=== PATIENT | female | born 1935 | race Caucasian/White ===

== ENCOUNTER 2019-03-20 11:40 | Outpatient (CLI) | payer MEDICARE, OTHER | END 2019-03-20 11:41 | disposition critical access hospital (66) | LOC: EMS 11:40 | PROVIDERS: ATTEND Surgery | DX: M25.552 Pain in left hip (principal); W18.09XA Striking against other object with subsequent fall, initial encounter; Y92.009 Unspecified place in unspecified non-institutional (private) residence as the place of occurrence of the external cause | CPT/HCPCS: A0425; A0427; A0429 ==

== ENCOUNTER 2019-03-20 11:56 | Inpatient (IN) | payer MEDICARE, OTHER ==
[2019-03-20] MEDS ORDERED: ONDANSETRON 4 MG/2 ML VIAL IVP STA (12:40)
[2019-03-20] MEDS ORDERED: MORPHINE 2 MG/ML CARPUJECT IVP STA (12:40)
[2019-03-20 12:59] LABS: BASOPHILS % (AUTO) 0.6 %; EOSINOPHILS % (AUTO) 0.7 %; HGB - HEMOGLOBIN 12.9 g/dL (12.0-16.0); LYMPHOCYTES # (AUTO) 1.1 10^3/uL (1.5-3.5); LYMPHOCYTES % (AUTO) 20.4 %; MEAN CORPUSCULAR HEMOGLOBIN 30.3 pg (27.0-31.0); MEAN CORPUSCULAR HGB CONC 32.5 g/dL (32.0-36.0); MEAN CORPUSCULAR VOLUME 93.2 fL (81.0-99.0); MEAN PLATELET VOLUME 12.1 fL (7.9-10.8); MONOCYTES # (AUTO) 0.4 10^3/uL (0.0-1.0); MONOCYTES % (AUTO) 7.1 %; NEUTROPHILS # (AUTO) 3.8 10^3/uL (1.5-6.6); NEUTROPHILS % (AUTO) 70.6 %; PLT - PLATELET COUNT 110 10^3/uL (130-450); RED BLOOD COUNT 4.26 10^6/uL (4.20-5.40); RED CELL DISTRIBUTION WIDTH 11.9 % (12.0-15.0); WHITE BLOOD COUNT 5.4 x10^3/uL (4.8-10.8)
[2019-03-20 13:05] LABS: PT - PROTHROMBIN TIME 11.4 secs (9.9-12.6)
[2019-03-20 13:08] LABS: ALBUMIN 3.5 g/dL (3.2-5.5); ALBUMIN/GLOBULIN RATIO 1.2 (1.0-2.2); BILIRUBIN,TOTAL 0.5 mg/dL (0.2-1.0); CALCIUM 9.9 mg/dL (8.5-10.3); CREATININE 0.8 mg/dL (0.4-1.0); TOTAL PROTEIN 6.5 g/dL (6.7-8.2)
[2019-03-20 13:39] LABS: PLATELET ESTIMATE, MANUAL DECREASED (<130,000) (NORMAL); PLATELET MORPHOLOGY NORMAL APPEARANCE (NORMAL)
--- NOTE | 2019-03-20 13:59 | ED Physician Documentation ---
History of Present Illness - Stated complaint Stated Complaint: FALL - Chief complaint Chief Complaint: Trauma Ext - Additonal information Additional information: This is an 83-year-old female with a history of diabetes, who presents with left hip pain after a fall. Patient was walking out of the house trying to find her dog and she ran into a glass door that she did not see, causing her to fall backwards onto her left hip. She states that immediate pain in the hip and could not move from the position on the ground. She is been unable to ambulate. Her friends at the house called for EMS who transported her here. She denies weakness or numbness in the leg. 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 HEENT: Tonsil/Adenoidectomy - Present Medications Home Medications: Ambulatory Orders Medication Instructions Recorded Confirmed Estrogens, Conjugated [Premarin] 0.3 mg PO 01/13/13 01/13/13 Glucosamine Sulfate Dipot Chlr 1,000 mg PO 01/13/13 01/13/13 [Glucosamine] Lisinopril 20 mg PO 01/13/13 01/13/13 Metformin HCl [Glucophage Xr] 750 mg PO BID 01/13/13 01/13/13 Metoprolol/Hydrochlorothiazide 50 each PO 01/13/13 01/13/13 [Metoprolol-Hctz 100-50 mg Tab] Multivitamin [Multivitamins] 1 each PO 01/13/13 01/13/13 [place]-3/Dha/Epa/Fish Oil [Fish Oil] 500 mg PO BID 01/13/13 01/13/13 Simvastatin [Zocor] 10 mg PO 01/13/13 01/13/13 - Allergies Allergies/Adverse Reactions: Allergies Allergy/AdvReac Type Severity Reaction Status Date / Time adhesive AdvReac Mild unknown Verified 03/20/19 12:51 codeine [Codeine] AdvReac Mild Nausea Verified 03/20/19 12:51 PD ED PE NORMAL - Vitals Vital signs reviewed: Yes - General General: Alert and oriented X 3 - HEENT HEENT: Atraumatic - Neck Neck: No bony TTP - Cardiac Cardiac: RRR - Respiratory Respiratory: Clear bilaterally - Abdomen Abdomen: Non tender, Non distended - Derm Derm: Warm and dry - Extremities Extremities: Other (Pain with palpation along the left hip joint, and severe pain with any movement of the left leg. 5/5 strength with ankle dorsiflexion and plantarflexion, SILT, distal pulses 2+ bilaterally.) - Neuro Neuro: Alert and oriented X 3 - Psych Psych: Normal mood, Normal affect Results - Vitals Vitals: Vital Signs - 24 hr 03/20/19 03/20/19 12:03 14:18 Temperature 36.5 C Heart Rate 58 L 61 Respiratory 14 18 Rate Blood Pressure 197/70 H 145/45 H O2 Saturation 100 96 Oxygen O2 Source Room air - Labs Labs: Laboratory Tests 03/20/19 03/20/19 03/20/19 12:45 12:45 12:45 WBC 5.4 RBC 4.26 Hgb 12.9 Hct 39.7 MCV 93.2 MCH 30.3 MCHC 32.5 RDW 11.9 L Plt Count 110 L MPV 12.1 H Neut # (Auto) 3.8 Lymph # (Auto) 1.1 L [place] # (Auto) 0.4 Eos # (Auto) 0.0 Baso # (Auto) 0.0 Absolute Nucleated RBC 0.00 Nucleated RBC % 0.0 Manual Slide Review Indicated Platelet Estimate DECREASED (<130,000) Platelet Morphology NORMAL APPEARANCE PT 11.4 INR 1.0 Sodium 138 Potassium 4.2 Chloride 101 Carbon Dioxide 29 Anion Gap 8.0 BUN 24 H Creatinine 0.8 Estimated GFR (MDRD) 68 L Glucose 123 H Glycated Hemoglobin Estim Average Glucose Calcium 9.9 Total Bilirubin 0.5 AST 18 ALT 13 Alkaline Phosphatase 57 Total Protein 6.5 L Albumin 3.5 Globulin 3.0 Albumin/Globulin Ratio 1.2 Lipase 31 03/20/19 12:45 WBC RBC Hgb Hct MCV MCH MCHC RDW Plt Count MPV Neut # (Auto) Lymph # (Auto) [place] # (Auto) Eos # (Auto) Baso # (Auto) Absolute Nucleated RBC Nucleated RBC % Manual Slide Review Platelet Estimate Platelet Morphology PT INR Sodium Potassium Chloride Carbon Dioxide Anion Gap BUN Creatinine Estimated GFR (MDRD) Glucose Glycated Hemoglobin 5.9 Estim Average Glucose 123 H Calcium Total Bilirubin AST ALT Alkaline Phosphatase Total Protein Albumin Globulin Albumin/Globulin Ratio Lipase - Rads (name of study) XR hip L Radiology: Other (Left femoral neck fracture) PD MEDICAL DECISION MAKING - ED course Complexity details: considered differential (Fracutre, dislocation, strain, sprain, contusion) ED course: Pt presents with left hip pain after a fall. Her exam is concerning to fracture, and XR confirms fracture of the femoral neck. She was given morphine and zofran for symptoms. Labs notable for mild thrombocytopenia, otherwise unremarkable. I spoke with Dr. Morales at 15:06,who recommended admission to hospitalist, with plans for operative fixation tomorrow. She was started on LR maintenance fluids and admitted to Dr. Nicholson. I updated patient on the plan and answered her questions to the best of my ability. While in the ED she required multiple further doses of hydromorphone for pain control. Departure - Departure Disposition: [facility] DC/Xfer Clinical Impression: Hip fracture Qualifiers: Encounter type: initial encounter Fracture type: closed Laterality: left Qualified Code(s): S72.002A - Fracture of unspecified part of neck of left femur, initial encounter for closed fracture Condition: Stable Discharge Date/Time: 03/20/19 17:19
[2019-03-20] MEDS ORDERED: HYDROmorphone 2 MG/ML VIAL IVP STA ×2 (14:04→15:32)
--- NOTE | 2019-03-20 14:12 | XRAY Report ---
Reason: Fall, L hip pain, limited ROM Procedure Date: 03/20/2019 Accession Number: [id number] / [id number] Procedure: XR - Hip w/Pelvis 2-3V LT CPT Code: FULL RESULT: EXAM: LEFT HIP RADIOGRAPHY EXAM DATE: 03/20/2019 01:35 PM. CLINICAL HISTORY: Fall, L hip pain, limited ROM. COMPARISON: None. TECHNIQUE: 2 views. FINDINGS: Bones: There is asymmetric angulation of the left femoral neck with cortical discontinuity consistent with acute mildly displaced transcervical femoral neck fracture. Joints: Hip joints are relatively preserved. No dislocation. Moderate pubic symphyseal DJD. Soft Tissues: Unremarkable. IMPRESSION: 1. Findings are consistent with acute left femoral neck fracture. RADIA
[2019-03-20] MEDS ORDERED: ONDANSETRON 4 MG/2 ML VIAL IVP PRN (15:29)
[2019-03-20] MEDS ORDERED: ZOLPIDEM 5 MG TABLET PO PRN (15:29)
[2019-03-20] MEDS ORDERED: SODIUM CHLORIDE FLUSH 0.9% 10 ML SYRINGE IVP PRN (15:29)
--- NOTE | 2019-03-20 15:29 | HISTORY & PHYSICAL EXAMINATION ---
Chief Complaint - Chief Complaint Chief Complaint: fall, hip pain History of Present Illness - History of Present Illness HPI Comment/Other: Ms. Ahuja is a 83-year-old female with a history of diabetes and HTN, who presents ER complain of left hip pain after she had a fall. Patient report when she tried to find her dog, she ran into a glass door which caused her to fall backwards onto her left hip. She recognized the immediate pain in the hip. she could not move from the position on the ground. Her friends at the house called for EMS who transported her here. she denies other injuries. She denies weakness or numbness in the left leg. she report she walked every day about one mile. she report she moved to [facility] about two years ago from [place] after her . She denies chest pain, vision change, headache, fever, chill, shortness of breath, nausea, vomiting, abdominal pain. Pt denies cardiac history. Xray of hip reveals the findings are consistent with acute left femoral neck fracture. Pt's lab work in ER today are unremarkable. Dr. Morales was called by ER. pt is planned to have hip repair on tomorrow. pt is admitted for left hip repair. 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 her Mother from COPD complication. she had four child. one son is not health because he smoked too much, other three children are health. she revomed to [place] from [place] about 2 years ago after her Social History Notes: she report she quited cigarette smoking at her ago 48, she denies alcohol and drug issue. - POLST POLST Status: DNR Meds/Allgy - Home Medications Home Medications: Ambulatory Orders Medication Instructions Recorded Confirmed Estrogens, Conjugated [Premarin] 0.3 mg PO 01/13/13 01/13/13 Glucosamine Sulfate Dipot Chlr 1,000 mg PO 01/13/13 01/13/13 [Glucosamine] Lisinopril 20 mg PO 01/13/13 01/13/13 Metformin HCl [Glucophage Xr] 750 mg PO BID 01/13/13 01/13/13 Metoprolol/Hydrochlorothiazide 50 each PO 01/13/13 01/13/13 [Metoprolol-Hctz 100-50 mg Tab] Multivitamin [Multivitamins] 1 each PO 01/13/13 01/13/13 [place]-3/Dha/Epa/Fish Oil [Fish Oil] 500 mg PO BID 01/13/13 01/13/13 Simvastatin [Zocor] 10 mg PO 01/13/13 01/13/13 - Allergies Allergies/Adverse Reactions: Allergies Allergy/AdvReac Type Severity Reaction Status Date / Time adhesive AdvReac Mild unknown Verified 03/20/19 12:51 codeine [Codeine] AdvReac Mild Nausea Verified 03/20/19 12:51 Review of Systems - Constitutional Constitutional: denies: Fatigue, Fever, Chills, Malaise, Weakness, Poor appetite, Diaphoresis, Night sweats, Weight gain, Weight loss - Eyes Eyes: denies: Pain, Irritation, Amaurosis, Blurred vision, Spots in vision, Field loss, Vision loss, Dipolpia, Corrective lenses - Ears, Nose & Throat Ears, Nose & Throat: denies: Ear pain, Hearing loss, Hearing aids, Tinnitus, Vertigo, Nasal pain, Nasal discharge, Nosebleeds, Nasal obstruction, Nasal congestion, Postnasal drainage, Dentures, Sore throat, Hoarseness, Mouth lesions, Bleeding gums, Dental decay, Dental pain - Cardiovascular Cariovascular: denies: Irregular heart rate, Palpitations, Chest pain, Edema, Lightheadedness, Syncope, Exertional dyspnea, Decr. exercise tolerance - Respiratory Respiratory: denies: Cough, Sputum production, Wheezing, Snoring, Hemoptysis, Orthopnea, SOB at rest, SOB with exertion, Apnea - Gastrointestinal Gastrointestinal: denies: Abdominal pain, Abdominal distention, Constipation, Diarrhea, Change in bowel habits, Rectal bleeding, Black stools, Bloody stools, Nausea, Vomiting, Bile emesis, Fabio blood emesis, Coffee grounds emesis, Reflux/heartburn - Genitourinary Genitourinary: denies: Dysuria, Frequency, Urgency, Hematuria, Incontinence, Flank pain, Nocturia, Urethral discharge - Musculoskeletal Musculoskeletal: reports: Limited range of motion, Joint pain. denies: Muscle pain, Back pain, Muscle aches, Stiffness, Muscle weakness, Gout - Integumentary Integumentary: denies: Rash, Pruritis, Lesions, Dryness, Lumps, Acne, Pigment changes, Nail changes - Neurological Neurological: denies: General weakness, Focal weakness, Headache, Dizziness, Numbness, Memory problems, Pre-existing deficit, Abnormal gait, Seizures, Incoordination, Slurred speech - Psychiatric Psychiatric: denies: Depression, Anxiety, Suicidal, Delusions, Hallucinations, Homicidal - Endocrine Endocrine: denies: Polyuria, Polydypsia, Polyphagia, Intolerance to cold - Hematologic/Lymphatic Hematologic/Lymphatic: denies: Anemia, Bruising, Petechiae, Blood clots, Lymphadenopathy, Bleeding tendencies, Recurrent infections Exam - Vital Signs Vital Signs: Vital Signs x48h Temp Pulse Resp BP Pulse Ox 03/20/19 14:18 61 18 145/45 H 96 03/20/19 12:03 36.5 C 58 L 14 197/70 H 100 - Physical Exam General Appearance: positive: No acute distress, Alert. negative: Lethargic Eyes Bilateral: positive: Normal inspection, PERRL, No lid inflammation, Conjunctivae nml ENT: positive: ENT inspection nml, Pharynx nml, No signs of dehydration. negative: Purulent nasal drainage, Pharyngeal erythema, Oral lesions Neck: positive: Nml inspection, Thyroid nml, No JVD, Trachea midline. negative: Thyromegaly, Lymphadenopathy (R), Lymphadenopathy (L), Stiff neck, Swelling/bruising, Tracheal deviation Respiratory: positive: Chest non-tender, No respiratory distress, Breath sounds nml. negative: Wheezes, Rales, Rhonchi Cardiovascular: positive: Regular rate & rhythm, No gallop, Systolic murmur. negative: Irregularly irregular, Extrasystoles, Tachycardia, Bradycardia, JVD present, Diastolic murmur Peripheral Pulses: positive: 2+ Abdomen: positive: Non-tender, No organomegaly, Nml bowel sounds, No distention. negative: Tenderness, Guarding, Rebound Back: positive: Nml inspection. negative: CVA tenderness (R), CVA tenderness (L) Skin: positive: Color nml, No rash, Warm, Dry. negative: Cyanosis, Diaphoresis, Pallor, Skin rash Extremities: positive: Nml appearance. negative: Non-tender, Full ROM, Calf tenderness, Joint swelling, Kendy's sign/cords Neurologic/Psychiatric: positive: Oriented x3, Sensation nml, Mood/affect nml. negative: Weakness, Sensory loss, Facial droop, Slurred/abnml speech, Depressed mood/affect Sepsis Event Note (H) - Evaluation Current Stage of Sepsis: Ruled out Conclusion/Plan - Problem List (1) Left displaced femoral neck fracture Conclusion/Plan: pt had a fall, left hip pain immediately and she can not move on left hip. Xray reveals left femoral neck fracture. Dr. Morales was called. pt is planned to have surgery on tomorrow. consulted with orthopedics surgeon, will followup pain control NPO after midnight, hypoglycemia protocol, [facility] to check glucose. pt has hx of DM DVT prophylaxis dependent surgeon PT/OT after operation consult with social security assessor for s/p operation d/c plan. revised cardiac risk index for pre-operative risk is 6.0% for 30-day risk of , CT, or cardiac arrest. ordered ECHO, is pending now. (2) Fall Conclusion/Plan: pt has fall in home, put fall precaution protocol will check vitamin D3 (3) DM2 (diabetes mellitus, type 2) Conclusion/Plan: pt only took Metformin at home. Hold Metformin now will check A1C start Slide scale, ACHS, and hypoglycemia protocol (4) HTN (hypertension) Conclusion/Plan: pt had Lisinopril and metoprolol/HCTZ at home meds, will reconcile after pharmacy verify, add PRN hydralazine (5) HLD (hyperlipidemia) Conclusion/Plan: no home meds, will check lipid panel (6) Do not intubate, cardiopulmonary resuscitation (CPR)-only code status Conclusion/Plan: pt clearly request DNR/DNI - Lab Results Fish Bones: 03/20/19 12:45 03/20/19 12:45 Core Measures - Anticipated LOS I expect patient to be DC'd or transferred within 96 hours.: Yes - DVT/VTE - Prophylaxis VTE/DVT Device ordered at admit?: Yes VTE/DVT Prophylaxis med ordered at admit?: Yes
[2019-03-20 16:17] LABS: HEMOGLOBIN A1C 0.57 g/dL; HEMOGLOBIN A1C % 5.9 % (4.6-6.2)
[2019-03-20] MEDS ORDERED: LISINOPRIL 20 MG TABLET PO SCH (17:01)
[2019-03-20] MEDS ORDERED: hydrALAZINE INJ 20 MG/ML VIAL IVP PRN (17:26)
[2019-03-20] MEDS: INSULIN ASPART 300 UNIT/3 ML PEN SUBQ SCH ×2 (17:40→22:07)
[2019-03-20] MEDS: SODIUM CHLORIDE FLUSH 0.9% 10 ML SYRINGE IVP SCH ×2 (17:41→23:37)
[2019-03-20] MEDS: FAMOTIDINE 20 MG TABLET PO SCH (22:07)
[2019-03-20] MEDS: MORPHINE 2 MG/ML CARPUJECT IVP PRN (22:08)
[2019-03-20] MEDS: oxyCODONE 5 MG TABLET PO PRN (23:37)
[2019-03-20] MEDS: SODIUM CHLORIDE 0.9% 1,000 ML IV SCH (23:38)
[2019-03-21] MEDS: MORPHINE 2 MG/ML CARPUJECT IVP PRN (04:55)
[2019-03-21 05:25] LABS: BASOPHILS % (AUTO) 0.3 %; EOSINOPHILS # (AUTO) 0.1 10^3/uL (0.0-0.7); EOSINOPHILS % (AUTO) 1.3 %; HGB - HEMOGLOBIN 13.8 g/dL (12.0-16.0); LYMPHOCYTES % (AUTO) 12.1 %; MEAN CORPUSCULAR HEMOGLOBIN 30.3 pg (27.0-31.0); MEAN CORPUSCULAR HGB CONC 32.4 g/dL (32.0-36.0); MEAN CORPUSCULAR VOLUME 93.4 fL (81.0-99.0); MEAN PLATELET VOLUME 12.1 fL (7.9-10.8); MONOCYTES # (AUTO) 0.8 10^3/uL (0.0-1.0); NEUTROPHILS # (AUTO) 5.9 10^3/uL (1.5-6.6); NEUTROPHILS % (AUTO) 75.8 %; PLT - PLATELET COUNT 132 10^3/uL (130-450); RED BLOOD COUNT 4.56 10^6/uL (4.20-5.40); RED CELL DISTRIBUTION WIDTH 11.9 % (12.0-15.0); WHITE BLOOD COUNT 7.8 x10^3/uL (4.8-10.8)
[2019-03-21 05:34] LABS: CALCIUM 9.2 mg/dL (8.5-10.3); CREATININE 0.9 mg/dL (0.4-1.0); MAGNESIUM 1.6 mg/dL (1.7-2.8)
[2019-03-21 05:43] LABS: CHOLESTEROL 133 mg/dL; HDL CHOLESTEROL 45 mg/dL; LDL CHOLESTEROL,CALCULATED 57 mg/dL; LDL/HDL RATIO 1.3 (<4.4); VLDL CHOLESTEROL 31 mg/dL
[2019-03-21] MEDS: FAMOTIDINE 20 MG TABLET PO SCH ×2 (08:08→21:24)
[2019-03-21] MEDS: POLYETHYLENE GLYCOL 3350 17 GM PACKET PO SCH (08:08)
[2019-03-21] MEDS: METOPROLOL SUCCINATE 50 MG TABLET PO SCH (08:08)
--- NOTE | 2019-03-21 08:08 | ANESTHESIA ---
Pre-Anesthesia VS, & Labs - Diagnosis left femoral neck fracture - Procedure left hip hemiarthroplasty Vital Signs: Temp Pulse Resp BP Pulse Ox 37.5 C 72 16 160/50 H 98 03/21/19 07:16 03/21/19 07:16 03/21/19 07:16 03/21/19 07:16 03/21/19 07:16 Height 5 ft 1 in Weight (kg) 62.59 kg Body Mass Index 26.0 - NPO >8 hours - Is Patient ?: No - Lab Results Current Lab Results: Laboratory Tests 03/21/19 05:04: Triglycerides 155 H, Cholesterol 133, LDL Cholesterol, Calc 57, VLDL Cholesterol 31, HDL Cholesterol 45 L, LDL/HDL Ratio 1.3, Cholesterol/HDL Ratio 3.0 03/21/19 05:04: Sodium 139, Potassium 3.8, Chloride 99 L, Carbon Dioxide 31, Anion Gap 9.0, BUN 19, Creatinine 0.9, Estimated GFR (MDRD) 60 L, Glucose 140 H, Calcium 9.2, Magnesium 1.6 L 03/21/19 05:04: WBC 7.8, RBC 4.56, Hgb 13.8, Hct 42.6, MCV 93.4, MCH 30.3, MCHC 32.4, RDW 11.9 L, Plt Count 132, MPV 12.1 H, Neut # (Auto) 5.9, Lymph # (Auto) 1.0 L, [place] # (Auto) 0.8, Eos # (Auto) 0.1, Baso # (Auto) 0.0, Absolute Nu cleated RBC 0.00, Nucleated RBC % 0.0 03/20/19 12:45: Glycated Hemoglobin 5.9, Estim Average Glucose 123 H 03/20/19 12:45: Sodium 138, Potassium 4.2, Chloride 101, Carbon Dioxide 29, Anion Gap 8.0, BUN 24 H, Creatinine 0.8, Estimated GFR (MDRD) 68 L, Glucose 123 H, Calcium 9.9, Total Bilirubin 0.5, AST 18, ALT 13, Alkaline Phosphatase 57, Total Protein 6.5 L, Albumin 3.5, Globulin 3.0, Albumin/Globulin Ratio 1.2, Lipase 31 03/20/19 12:45: PT 11.4, INR 1.0 03/20/19 12:45: WBC 5.4, RBC 4.26, Hgb 12.9, Hct 39.7, MCV 93.2, MCH 30.3, MCHC 32.5, RDW 11.9 L, Plt Count 110 L, MPV 12.1 H, Neut # (Auto) 3.8, Lymph # (Auto) 1.1 L, [place] # (Auto) 0.4, Eos # (Auto) 0.0, Baso # (Auto) 0.0, Absolute Nucleat ed RBC 0.00, Nucleated RBC % 0.0, Manual Slide Review Indicated, Platelet Estimate DECREASED (<130,000), Platelet Morphology NORMAL APPEARANCE Fish Bones: 03/21/19 05:04 03/21/19 05:04 Home Medications and Allergies Active Medications Acetaminophen (Tylenol) 650 mg PO Q4HR PRN PRN Reason: Pain 1 to 4 Enoxaparin Sodium (Lovenox) 40 mg SUBQ DAILY [facility] Famotidine (Pepcid) 20 mg PO BID [facility] Last Admin: 03/20/19 22:07 Dose: Not Given Hydralazine HCl (Apresoline Inj) 10 mg IVP QID PRN PRN Reason: Hypertensive Emergency Sodium Chloride (Normal Saline 0.9%) 1,000 mls @ 100 mls/hr IV .Q10H [facility] Stop: 03/21/19 19:29 Last Admin: 03/20/19 23:38 Dose: 100 mls/hr Insulin Human Regular (Novolin R) 1 - 5 unit SUBQ Q6HR [facility]; Protocol Lisinopril (Zestril) 30 mg PO DAILY [facility] Magnesium Oxide (Mag Ox) 400 mg PO DAILYWM [facility] Metoprolol Succinate (Toprol Xl) 50 mg PO DAILY [facility] Morphine Sulfate (Morphine (Carpuject)) 2 mg IVP Q2HR PRN PRN Reason: Pain 8 to 10 Last Admin: 03/21/19 04:55 Dose: 2 mg Ondansetron HCl (Zofran Inj) 4 mg IVP Q6HR PRN PRN Reason: Nausea / Vomiting Last Admin: 03/20/19 17:19 Dose: 4 mg Oxycodone HCl (Roxicodone) 5 mg PO Q4HR PRN PRN Reason: Pain 5 to 7 Last Admin: 03/20/19 23:37 Dose: 5 mg Polyethylene Glycol (Miralax) 17 gm PO DAILY [facility] Sodium Chloride (Normal Saline Flush 0.9%) 10 ml IVP PRN PRN PRN Reason: NEEDED PER PROVIDER ORDERS Last Admin: 03/20/19 17:20 Dose: 10 ml Sodium Chloride (Normal Saline Flush 0.9%) 10 ml IVP 0100,0900,1700 NEELAM Last Admin: 03/20/19 23:37 Dose: 10 ml Zolpidem Tartrate (Ambien) 5 mg PO QPM PRN PRN Reason: Insomnia Estrogens, Conjugated [Premarin] 0.3 mg PO 01/13/13 Glucosamine Sulfate Dipot Chlr [Glucosamine] 1,000 mg PO 01/13/13 Lisinopril 20 mg PO 01/13/13 Metformin HCl [Glucophage Xr] 750 mg PO BID 01/13/13 Metoprolol/Hydrochlorothiazide [Metoprolol-Hctz 100-50 mg Tab] 50 each PO 01/13/13 Multivitamin [Multivitamins] 1 each PO 01/13/13 [place]-3/Dha/Epa/Fish Oil [Fish Oil] 500 mg PO BID 01/13/13 Simvastatin [Zocor] 10 mg PO 01/13/13 Allergies/Adverse Reactions: Allergies Allergy/AdvReac Type Severity Reaction Status Date / Time adhesive AdvReac Mild unknown Verified 03/20/19 12:51 codeine [Codeine] AdvReac Mild Nausea Verified 03/20/19 12:51 Anes History & Medical History - Anesthetic History Anesthesia Complications: reports: No previous complications - Medical History Cardiovascular: reports: Hypertension Pulmonary: reports: None Gastrointestinal: reports: None Urinary: reports: None Neuro: reports: None Musculoskeletal: reports: None Endocrine/Autoimmune: reports: Type 2 diabetes Blood Disorders: reports: None Skin: reports: None Smoking Status: Former smoker - Surgical History General: Cholecystectomy, Appendectomy Eyes Ears Nose Throat (EENT): Tonsil/Adenoidectomy Gynecologic: Hysterectomy Orthopedic: Arthroscopic surgery Exam General: Alert Dental: WNL Mouth Opening: Greater than 4 Fingerbreadths Neck Mobility: Normal Mallampati classification: II Thyromental Distance: greater than 6 cm Respiratory: Lungs clear Cardiovascular: Regular rate, Normal S1, Normal S2 Mental/Cognitive Status: Alert/Oriented X3 Plan Anesthesia Type: General Consent for Procedure(s) Verified and Reviewed: Yes Code Status: Attempt Resuscitation (discussed options with patient, wished full code for perioperative time period.) ASA classification: 3-Severe systemic disease Is this case an emergency?: Yes
[2019-03-21] MEDS: MAGNESIUM OXIDE 400 MG TABLET PO SCH (08:09)
[2019-03-21] MEDS: LISINOPRIL 20 MG TABLET PO SCH (08:09)
[2019-03-21] MEDS ORDERED: BUPIVACAINE 0.25%-EPI 1:200000 PF 30 ML VIAL ONE (08:57)
[2019-03-21] MEDS ORDERED: LISINOPRIL 20 MG TABLET PO SCH (09:00)
[2019-03-21] MEDS ORDERED: LACTATED RINGERS 1,000 ML IV ONE ×2 (10:30→11:00)
[2019-03-21] MEDS ORDERED: BUPIVACAINE 0.25%-EPI 1:200000 PF 30 ML VIAL SUBQ ONE (10:30)
--- NOTE | 2019-03-21 11:34 | OPERATIVE REPORT ---
Operative Report - General Admit Date: 03/20/19 Procedure Date: 03/21/19 Planned Procedure: bipolar left hip replacement Pre-Op Diagnosis: left femoral neck fracture Procedure Performed: Left Bipolar hip replacement Post Op Diagnosis: same - Procedure Note Primary Surgeon: julio césar Anesthesia Provider: Savanah Newsome Anesthesia Technique: General ET tube, Regional block Estimated Blood Loss (mL): 45
[2019-03-21] MEDS: hydrALAZINE INJ 20 MG/ML VIAL ONE ×2 (11:54→12:04)
[2019-03-21] MEDS ORDERED: INSULIN REGULAR HUMAN 100 UNIT/1 ML 10 ML MDV SUBQ SCH (12:00)
--- NOTE | 2019-03-21 12:02 | CONSULTATION NOTE ---
Referring Provider Name of Referring Provider:: MD Mariela Consult Date: 03/20/19 Chief Complaint - Chief Complaint Chief Complaint: 83yr old lady s/p GLF in friend's home. She is visiting from [facility] History of Present Illness - Admitted From Admitted From:: ED - History Obtained From Records Reviewed: ER History obtained from: Patient/record Exam Limitations: none - History of Present Illness HPI Comment/Other: previous ambulator runs into glass door at friend's home. 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 her Mother from COPD complication. she had four child. one son is not health because he smoked too much, other three children are health. she revomed to [place] from [place] about 2 years ago after her Social History Notes: she report she quited cigarette smoking at her ago 48, she denies alcohol and drug issue. - POLST POLST Status: DNR Meds/Allgy - Home Medications Home Medications: Ambulatory Orders Medication Instructions Recorded Confirmed Estrogens, Conjugated [Premarin] 0.3 mg PO 01/13/13 01/13/13 Glucosamine Sulfate Dipot Chlr 1,000 mg PO 01/13/13 01/13/13 [Glucosamine] Lisinopril 20 mg PO 01/13/13 01/13/13 Metformin HCl [Glucophage Xr] 750 mg PO BID 01/13/13 01/13/13 Metoprolol/Hydrochlorothiazide 50 each PO 01/13/13 01/13/13 [Metoprolol-Hctz 100-50 mg Tab] Multivitamin [Multivitamins] 1 each PO 01/13/13 01/13/13 [place]-3/Dha/Epa/Fish Oil [Fish Oil] 500 mg PO BID 01/13/13 01/13/13 Simvastatin [Zocor] 10 mg PO 01/13/13 01/13/13 - Allergies Allergies/Adverse Reactions: Allergies Allergy/AdvReac Type Severity Reaction Status Date / Time adhesive AdvReac Mild unknown Verified 03/20/19 12:51 codeine [Codeine] AdvReac Mild Nausea Verified 03/20/19 12:51 Review of Systems - Musculoskeletal Musculoskeletal: reports: Limited range of motion, Joint pain, Joint swelling Exam - Vital Signs Reviewed Vital Signs: Yes Vital Signs: Vital Signs x48h Temp Pulse Pulse Resp BP BP Pulse Ox 03/21/19 11:56 36.7 C 76 16 185/59 H 99 03/21/19 11:47 36.7 C 80 16 195/64 H 100 03/21/19 11:37 37.1 C 86 16 190/68 H 100 03/21/19 07:16 37.5 C 72 16 160/50 H 98 03/21/19 05:03 37.1 C 72 16 163/46 H 97 - Physical Exam General Appearance: positive: No acute distress Eyes Bilateral: positive: Normal inspection Neck: positive: Nml inspection Respiratory: positive: No respiratory distress Cardiovascular: positive: Regular rate & rhythm Abdomen: positive: Non-tender Extremities: positive: Joint swelling, Other (slight external rotation of LLE and very slight shortening. Pain with AROM or PROM. Mild medial left ankle tenderness but no swelling, bruising, or discoloration motor function is intact, pulses 2+) Neurologic/Psychiatric: positive: Oriented x3, CN's nml (2-12), Motor nml, Sensation nml, Mood/affect nml Conclusion/Plan - Diagnosis Diagnosis: angulated and slightly displaced fracture of left femoral neck - Lab Results Lab results reviewed: Yes Fish Bones: 03/21/19 05:04 03/21/19 05:04 - Diagnostic Imaging Results Diagnostic Imaging Results: positive: Read independently (after thorough discussion with the patient, plan for Bipolar replacement of left hip' Patient gives informed consent.)
--- NOTE | 2019-03-21 12:45 | XRAY Report ---
Reason: post op Procedure Date: 03/21/2019 Accession Number: [id number] / [id number] Procedure: XR - Hip w/Pelvis 2-3V LT CPT Code: FULL RESULT: EXAM: LEFT HIP RADIOGRAPHY EXAM DATE: 03/21/2019 12:11 PM. CLINICAL HISTORY: Postoperative. COMPARISON: Pelvis and left hip radiographs from 03/20/2019. TECHNIQUE: 2 views. FINDINGS: Bones: There are postoperative changes from left hip arthroplasty. Prosthesis appears intact without significant periprosthetic lucency. Joints: Limited to the prosthesis is within normal limits. No dislocation in the right hip. Soft Tissues: Expected soft tissue gas over the left hip. IMPRESSION: Expected appearance status post left hip arthroplasty. Alignment is within normal limits. RADIA
[2019-03-21] MEDS: SODIUM CHLORIDE 0.9% 1,000 ML IV SCH (12:56)
--- NOTE | 2019-03-21 13:10 | PROVIDER PROGRESS NOTE ---
Subjective - Prog Note Date Prog Note Date: 03/21/19 - Subjective Pt reports feeling: Improved Subjective: pt finished the surgery. pt had Bipolar replacement of left hip today morning. Now pt is hemodynamic stable Current Medications - Current Medications Current Medications: Active Medications Acetaminophen (Tylenol) 650 mg PO Q4HR PRN PRN Reason: Pain 1 to 4 Aspirin ([place]) 325 mg PO DAILYWM [facility] Famotidine (Pepcid) 20 mg PO BID [facility] Last Admin: 03/21/19 08:08 Dose: 20 mg Hydralazine HCl (Apresoline Inj) 10 mg IVP QID PRN PRN Reason: Hypertensive Emergency Sodium Chloride (Normal Saline 0.9%) 1,000 mls @ 100 mls/hr IV .Q10H [facility] Stop: 03/21/19 19:29 Last Admin: 03/21/19 12:56 Dose: 100 mls/hr Insulin Human Regular (Novolin R) 1 - 5 unit SUBQ Q6HR [facility]; Protocol Last Admin: 03/21/19 12:48 Dose: Not Given Lisinopril (Zestril) 30 mg PO DAILY [facility] Last Admin: 03/21/19 08:09 Dose: Not Given Magnesium Oxide (Mag Ox) 400 mg PO DAILYWM [facility] Last Admin: 03/21/19 08:09 Dose: 400 mg Metoprolol Succinate (Toprol Xl) 50 mg PO DAILY [facility] Last Admin: 03/21/19 08:08 Dose: 50 mg Morphine Sulfate (Morphine (Carpuject)) 2 mg IVP Q2HR PRN PRN Reason: Pain 8 to 10 Last Admin: 03/21/19 04:55 Dose: 2 mg Ondansetron HCl (Zofran Inj) 4 mg IVP Q6HR PRN PRN Reason: Nausea / Vomiting Last Admin: 03/20/19 17:19 Dose: 4 mg Oxycodone HCl (Roxicodone) 5 mg PO Q4HR PRN PRN Reason: Pain 5 to 7 Last Admin: 03/20/19 23:37 Dose: 5 mg Polyethylene Glycol (Miralax) 17 gm PO DAILY [facility] Last Admin: 03/21/19 08:08 Dose: 17 gm Sodium Chloride (Normal Saline Flush 0.9%) 10 ml IVP PRN PRN PRN Reason: NEEDED PER PROVIDER ORDERS Last Admin: 03/20/19 17:20 Dose: 10 ml Sodium Chloride (Normal Saline Flush 0.9%) 10 ml IVP 0100,0900,1700 NEELAM Last Admin: 03/21/19 13:27 Dose: Not Given Zolpidem Tartrate (Ambien) 5 mg PO QPM PRN PRN Reason: Insomnia Estrogens, Conjugated [Premarin] 0.3 mg PO 01/13/13 Glucosamine Sulfate Dipot Chlr [Glucosamine] 1,000 mg PO 01/13/13 Lisinopril 20 mg PO 01/13/13 Metformin HCl [Glucophage Xr] 750 mg PO BID 01/13/13 Metoprolol/Hydrochlorothiazide [Metoprolol-Hctz 100-50 mg Tab] 50 each PO 01/13 Multivitamin [Multivitamins] 1 each PO 01/13/13 [place]-3/Dha/Epa/Fish Oil [Fish Oil] 500 mg PO BID 01/13/13 Simvastatin [Zocor] 10 mg PO 01/13/13 Objective - Vital Signs/Intake & Output Reviewed Vital Signs: Yes Vital Signs: Vital Signs x48h Temp Pulse Pulse Resp BP BP BP 03/21/19 12:47 70 14 140/44 H 03/21/19 12:30 36.6 C 72 14 148/44 H 03/21/19 12:22 36.6 C 74 16 154/46 H 03/21/19 12:18 36.6 C 75 16 151/44 H 03/21/19 12:14 36.6 C 76 16 157/49 H 03/21/19 12:09 36.6 C 78 16 168/50 H 03/21/19 11:56 36.7 C 76 16 185/59 H 03/21/19 11:47 36.7 C 80 16 195/64 H 03/21/19 11:37 37.1 C 86 16 190/68 H 03/21/19 07:16 37.5 C 72 16 160/50 H Pulse Ox 03/21/19 12:47 03/21/19 12:30 96 03/21/19 12:22 98 03/21/19 12:18 98 03/21/19 12:14 98 03/21/19 12:09 98 03/21/19 11:56 99 03/21/19 11:47 100 03/21/19 11:37 100 03/21/19 07:16 98 Intake & Output: Intake & Output 03/18/19 03/19/19 03/20/19 03/21/19 23:59 23:59 23:59 23:59 Intake Total 420 1000 Output Total 300 500 Balance 120 500 - Objective General Appearance: positive: No acute distress, Alert. negative: Lethargic Eyes Bilateral: positive: Normal inspection, PERRL, No lid inflammation, Conjunctivae nml ENT: positive: ENT inspection nml, Pharynx nml, No signs of dehydration. negative: Purulent nasal drainage, Pharyngeal erythema, Oral lesions Neck: positive: Nml inspection, Thyroid nml, No JVD, Trachea midline. negative: Thyromegaly, Lymphadenopathy (R), Stiff neck, Swelling/bruising, Tracheal deviation Respiratory: positive: Chest non-tender, No respiratory distress, Breath sounds nml. negative: Wheezes, Rales, Rhonchi Cardiovascular: positive: Regular rate & rhythm, No murmur, No gallop. negative: Irregularly irregular, Extrasystoles, Tachycardia, Bradycardia, JVD present, Systolic murmur, Diastolic murmur Peripheral Pulses: 2+ Radial (R), 2+ Radial (L), 2+ Dorsalis pedis (R), 2+ Dorsalis pedis (L) Abdomen: positive: Non-tender, No organomegaly, Nml bowel sounds, No distention. negative: Tenderness, Guarding, Rebound Back: positive: Nml inspection. negative: CVA tenderness (R), CVA tenderness (L) Skin: positive: Color nml, No rash, Warm, Dry. negative: Cyanosis, Diaphoresis, Pallor Extremities: negative: Calf tenderness, Kendy's sign/cords Neurologic/Psychiatric: negative: Weakness, Sensory loss, Facial droop, Slurred/abnml speech, Depressed mood/affect - Lab Results Fish Bones: 03/21/19 05:04 03/21/19 05:04 Other Labs: Lab Results x24hrs 03/21/19 03/21/19 03/21/19 Range/Units 08:52 05:04 05:04 WBC (4.8-10.8) x10^3/uL RBC (4.20-5.40) 10^6/uL Hgb (12.0-16.0) g/dL Hct (37.0-47.0) % MCV (81.0-99.0) fL MCH (27.0-31.0) pg MCHC (32.0-36.0) g/dL RDW (12.0-15.0) % Plt Count (130-450) 10^3/uL MPV (7.9-10.8) fL Neut # (Auto) (1.5-6.6) 10^3/uL Lymph # (Auto) (1.5-3.5) 10^3/uL [place] # (Auto) (0.0-1.0) 10^3/uL Eos # (Auto) (0.0-0.7) 10^3/uL Baso # (Auto) (0.0-0.1) 10^3/uL Absolute Nucleated RBC x10^3/uL Nucleated RBC % /100WBC Platelet Estimate (NORMAL) Platelet Morphology (NORMAL) Sodium 139 (135-145) mmol/L Potassium 3.8 (3.5-5.0) mmol/L Chloride 99 L (101-111) mmol/L Carbon Dioxide 31 (21-32) mmol/L Anion Gap 9.0 (6-13) BUN 19 (6-20) mg/dL Creatinine 0.9 (0.4-1.0) mg/dL Estimated GFR (MDRD) 60 L (>89) Glucose 140 H (70-100) mg/dL Glycated Hemoglobin (4.6-6.2) % Estim Average Glucose (70-100) Calcium 9.2 (8.5-10.3) mg/dL Magnesium 1.6 L (1.7-2.8) mg/dL Triglycerides 155 H ( - 149) mg/dL Cholesterol 133 ( - 199) mg/dL LDL Cholesterol, Calc 57 ( - 129) mg/dL VLDL Cholesterol 31 mg/dL HDL Cholesterol 45 L (60 - ) mg/dL LDL/HDL Ratio 1.3 (<4.4) Cholesterol/HDL Ratio 3.0 (<4.4) Blood Type O POSITIVE Antibody Screen NEGATIVE 03/21/19 03/20/19 03/20/19 Range/Units 05:04 12:45 12:45 WBC 7.8 (4.8-10.8) x10^3/uL RBC 4.56 (4.20-5.40) 10^6/uL Hgb 13.8 (12.0-16.0) g/dL Hct 42.6 (37.0-47.0) % MCV 93.4 (81.0-99.0) fL MCH 30.3 (27.0-31.0) pg MCHC 32.4 (32.0-36.0) g/dL RDW 11.9 L (12.0-15.0) % Plt Count 132 (130-450) 10^3/uL MPV 12.1 H (7.9-10.8) fL Neut # (Auto) 5.9 3.8 (1.5-6.6) 10^3/uL Lymph # (Auto) 1.0 L 1.1 L (1.5-3.5) 10^3/uL [place] # (Auto) 0.8 0.4 (0.0-1.0) 10^3/uL Eos # (Auto) 0.1 0.0 (0.0-0.7) 10^3/uL Baso # (Auto) 0.0 0.0 (0.0-0.1) 10^3/uL Absolute Nucleated RBC 0.00 0.00 x10^3/uL Nucleated RBC % 0.0 0.0 /100WBC Platelet Estimate DECREASED (<130,000) (NORMAL) Platelet Morphology NORMAL APPEARANCE (NORMAL) Sodium (135-145) mmol/L Potassium (3.5-5.0) mmol/L Chloride (101-111) mmol/L Carbon Dioxide (21-32) mmol/L Anion Gap (6-13) BUN (6-20) mg/dL Creatinine (0.4-1.0) mg/dL Estimated GFR (MDRD) (>89) Glucose (70-100) mg/dL Glycated Hemoglobin 5.9 (4.6-6.2) % Estim Average Glucose 123 H (70-100) Calcium (8.5-10.3) mg/dL Magnesium (1.7-2.8) mg/dL Triglycerides ( - 149) mg/dL Cholesterol ( - 199) mg/dL LDL Cholesterol, Calc ( - 129) mg/dL VLDL Cholesterol mg/dL HDL Cholesterol (60 - ) mg/dL LDL/HDL Ratio (<4.4) Cholesterol/HDL Ratio (<4.4) Blood Type Antibody Screen ABX Reporting Has patient been on IV antibiotics over the past 48 hours?: No Sepsis Event Note (H) - Evaluation Current Stage of Sepsis: Ruled out Assessment/Plan - Problem List (1) Left displaced femoral neck fracture Impression: 03/21 s/p Bipolar replacement of left hip surgery, hemodynamic stable followup with surgeon pain control DVT prophylaxis, surgeon put Aspirin, continue PT/OT continue incentive spirometry to prevention of pneumonia continue carbo control diet pt had a fall, left hip pain immediately and she can not move on left hip. Xray reveals left femoral neck fracture. Dr. Morales was called. pt is planned to have surgery on tomorrow. consulted with orthopedics surgeon, will followup pain control NPO after midnight, hypoglycemia protocol, [facility] to check glucose. pt has hx of DM DVT prophylaxis dependent surgeon PT/OT after operation consult with criminal justice social worker for s/p operation d/c plan. revised cardiac risk index for pre-operative risk is 6.0% for 30-day risk of , ID, or cardiac arrest. ordered ECHO, is pending now. (2) Fall Conclusion/Plan: pt has fall in home, put fall precaution protocol will check vitamin D3 (3) DM2 (diabetes mellitus, type 2) Conclusion/Plan: 03/21 stable, continue slide scale, carbo control diet pt only took Metformin at home. Hold Metformin now will check A1C start Slide scale, ACHS, and hypoglycemia protocol (4) HTN (hypertension) Conclusion/Plan: 03/21 stable, continue home meds. increase Lisinopril to 30 mg daily pt had Lisinopril and metoprolol/HCTZ at home meds, will reconcile after pharmacy verify, add PRN hydralazine (5) HLD (hyperlipidemia) stable,lipitor 20 mg PM
[2019-03-21] MEDS: SODIUM CHLORIDE FLUSH 0.9% 10 ML SYRINGE IVP SCH ×2 (13:27→20:46)
[2019-03-21] MEDS ORDERED: ENOXAPARIN 40 MG/0.4 ML SYRINGE SUBQ SCH (14:00)
--- NOTE | 2019-03-21 15:46 | OPERATIVE REPORT ---
DATE OF SERVICE: 03/21/2019 Physician: Cathy Morales MD PREOPERATIVE DIAGNOSIS: Displaced and angulated closed fracture of the left femoral neck. POSTOPERATIVE DIAGNOSIS: Displaced and angulated closed fracture of the left femoral neck. PROCEDURE PERFORMED: Left cementless hip bipolar replacement. OPERATING SURGEON: Cathy Morales MD ANESTHESIA: General by Rebekah Newsome. INDICATIONS FOR SURGERY: Ramandeep is an 83-year-old female who suffered a ground level fall on 03/20/2019 injuring her left hip and subsequently unable to ambulate and in severe pain. She was found to have an angulated left closed femoral neck fracture and surgery was recommended, specifically bipolar hip replacement. The patient has given informed consent. FINDINGS AT SURGERY: patient's fracture was displaced and unstable. The hip did not have arthritis changes. The patient's bone density appeared relatively intact. DESCRIPTION OF OPERATIVE PROCEDURE: The patient was taken to the operating room, given a general anesthetic. She was positioned in right lateral decubitus. She was sterilely prepped and draped in standard fashion, and a surgical timeout was undertaken. Following this, a posterior approach to the hip was made through an approximately 8-inch incision curving off the posterior aspect of the trochanter and the incision, taken down through subcutaneous tissue to the fascia ishaan, and the incision was then developed through the fascia ishaan down to the short rotators of the hip, which were then exposed with placement of a Charnley retractor and specific placement of the extremity, so that the capsule and short rotators could be divided exposing underlying intraarticular fracture and removing the fractured femoral head. This was measured. The hip joint acetabulum was inspected and was intact. The area was flushed and irrigated, and small bony fragments were removed. The femur was then prepared for receiving a Antonia Taperloc hip by initial canal finding, recutting of the femoral neck, and then broaching up to accommodate a size 13 Taperloc standard offset hip, and this seated well and was stable, and on top of this was added the standard neck and the 45 mm head size bipolar. Trial reduction restored limb length and stability with the hip being able to be taken in 90 degrees of flexion and almost 90 degrees of internal rotation before the hip slid out of the socket. This was extremely stable anteriorly. Trial components were removed. The femoral stem was implanted, followed by the construct of the femoral head and bipolar socket, and this was reduced into the cup once again, restored stability, and closure was undertaken with FiberWire closure of short rotators and capsule and tensor fascia and fascia ishaan. The subcutaneous tissue was closed with Vicryl and the skin with 3-0 Monocryl. A sterile dressing was applied. The patient was then taken to recovery room in stable condition. IMPLANTS USED: Antonia: Sz; 13 taperloc stem, 45mm Biopolar cup. standard neck and offset ESTIMATED BLOOD LOSS: About 45 mL COMPLICATIONS: None. COUNTS: Sponge and needle counts correct. TD: 03/21/2019 12:16 BAILEY
[2019-03-21] MEDS: ACETAMINOPHEN 325 MG TABLET PO PRN ×2 (16:38→21:24)
[2019-03-21] MEDS: INSULIN ASPART 300 UNIT/3 ML PEN SUBQ SCH ×2 (17:26→21:27)
[2019-03-21] MEDS: ATORVASTATIN 10 MG TABLET PO SCH (21:23)
[2019-03-22] MEDS: oxyCODONE 5 MG TABLET PO PRN ×2 (00:31→04:20)
[2019-03-22] MEDS: SODIUM CHLORIDE FLUSH 0.9% 10 ML SYRINGE IVP SCH ×3 (01:33→16:24)
[2019-03-22] MEDS ORDERED: BENZOCAINE/MENTHOL LOZENGE MM PRN (01:53)
[2019-03-22] MEDS: ACETAMINOPHEN 325 MG TABLET PO PRN ×2 (04:20→16:24)
[2019-03-22 05:59] LABS: BASOPHILS % (AUTO) 0.2 %; EOSINOPHILS # (AUTO) 0.1 10^3/uL (0.0-0.7); EOSINOPHILS % (AUTO) 0.6 %; HGB - HEMOGLOBIN 11.9 g/dL (12.0-16.0); LYMPHOCYTES % (AUTO) 9.8 %; MEAN CORPUSCULAR HEMOGLOBIN 29.6 pg (27.0-31.0); MEAN CORPUSCULAR HGB CONC 31.3 g/dL (32.0-36.0); MEAN CORPUSCULAR VOLUME 94.5 fL (81.0-99.0); MEAN PLATELET VOLUME 12.3 fL (7.9-10.8); MONOCYTES # (AUTO) 0.8 10^3/uL (0.0-1.0); MONOCYTES % (AUTO) 8.3 %; NEUTROPHILS # (AUTO) 7.8 10^3/uL (1.5-6.6); NEUTROPHILS % (AUTO) 80.8 %; PLT - PLATELET COUNT 112 10^3/uL (130-450); RED BLOOD COUNT 4.02 10^6/uL (4.20-5.40); RED CELL DISTRIBUTION WIDTH 12.3 % (12.0-15.0); WHITE BLOOD COUNT 9.7 x10^3/uL (4.8-10.8)
[2019-03-22 06:11] LABS: CALCIUM 8.6 mg/dL (8.5-10.3); CREATININE 0.9 mg/dL (0.4-1.0)
--- NOTE | 2019-03-22 08:07 | PROVIDER PROGRESS NOTE ---
Subjective - General Admit Date: 03/20/19 Procedure Date: 03/21/19 Post Op Days: 1 Procedure Performed: Left Bipolar hip replacement - Review of Systems Wound/Incisions: positive: Dressing dry and intact General: positive: Fatigue Musculoskeletal: positive: Joint pain Psychiatric: positive: No symptoms Objective - Patient Data Reviewed Vital Signs: Yes Vital Signs: Vital Signs x48h Temp Pulse Resp BP Pulse Ox 03/22/19 07:06 37.1 C 78 16 147/49 H 93 03/22/19 06:45 37.1 C 03/22/19 04:05 37.7 C H 81 16 145/39 H 92 03/22/19 00:29 37.1 C 66 16 141/35 H 98 Weight: Weight 03/20/19 03/21/19 03/22/19 23:59 23:59 23:59 Weight (kg) 62.59 kg Intake & Output: Intake and Output Totals x24h 03/20/19 03/21/19 03/22/19 23:59 23:59 23:59 Intake Total 420 1260 1000 Output Total 300 1700 600 Balance 120 -440 400 - Lab Results Lab Results: 03/22/19 05:24 03/22/19 05:24 Other Lab Results: Lab Results x24hrs 03/22/19 03/22/19 03/21/19 Range/Units 05:24 05:24 08:52 WBC 9.7 (4.8-10.8) x10^3/uL RBC 4.02 L (4.20-5.40) 10^6/uL Hgb 11.9 L (12.0-16.0) g/dL Hct 38.0 (37.0-47.0) % MCV 94.5 (81.0-99.0) fL MCH 29.6 (27.0-31.0) pg MCHC 31.3 L (32.0-36.0) g/dL RDW 12.3 (12.0-15.0) % Plt Count 112 L (130-450) 10^3/uL MPV 12.3 H (7.9-10.8) fL Neut # (Auto) 7.8 H (1.5-6.6) 10^3/uL Lymph # (Auto) 1.0 L (1.5-3.5) 10^3/uL [place] # (Auto) 0.8 (0.0-1.0) 10^3/uL Eos # (Auto) 0.1 (0.0-0.7) 10^3/uL Baso # (Auto) 0.0 (0.0-0.1) 10^3/uL Absolute Nucleated RBC 0.00 x10^3/uL Nucleated RBC % 0.0 /100WBC Sodium 139 (135-145) mmol/L Potassium 3.9 (3.5-5.0) mmol/L Chloride 100 L (101-111) mmol/L Carbon Dioxide 30 (21-32) mmol/L Anion Gap 9.0 (6-13) BUN 14 (6-20) mg/dL Creatinine 0.9 (0.4-1.0) mg/dL Estimated GFR (MDRD) 60 L (>89) Glucose 128 H (70-100) mg/dL Calcium 8.6 (8.5-10.3) mg/dL Blood Type O POSITIVE Antibody Screen NEGATIVE - Imaging Results Radiology Imaging: positive: EMP read contemporaneously - Current Medications Current Medications: Current Medications Generic Name Dose Route Start Last Admin Trade Name Freq PRN Reason Stop Dose Admin Acetaminophen 650 mg 03/20/19 15:29 03/22/19 04:20 Tylenol PO 650 mg Q4HR PRN Administration Pain 1 to 4 Atorvastatin Calcium 20 mg 03/21/19 21:00 03/21/19 21:23 Lipitor PO 20 mg QPM NEELAM Administration Famotidine 20 mg 03/20/19 21:00 03/21/19 21:24 Pepcid PO 20 mg BID NEELAM Administration Insulin Aspart 1 - 5 unit 03/21/19 17:00 03/21/19 21:27 Novolog SUBQ 1 unit 0800,1200,1700,2100 NEELAM Administration Protocol Lisinopril 30 mg 03/21/19 09:00 03/21/19 08:09 Zestril PO Not Given DAILY NEELAM Magnesium Oxide 400 mg 03/21/19 08:00 03/21/19 08:09 Mag Ox PO 400 mg DAILYWM NEELAM Administration Metoprolol Succinate 50 mg 03/21/19 09:00 03/21/19 08:08 Toprol Xl PO 50 mg DAILY NEELAM Administration Morphine Sulfate 2 mg 03/20/19 15:29 03/21/19 04:55 Morphine (Carpuject) IVP 2 mg Q2HR PRN Administration Pain 8 to 10 Ondansetron HCl 4 mg 03/20/19 15:29 03/20/19 17:19 Zofran Inj IVP 4 mg Q6HR PRN Administration Nausea / Vomiting Oxycodone HCl 5 mg 03/20/19 15:29 03/22/19 04:20 Roxicodone PO 5 mg Q4HR PRN Administration Pain 5 to 7 Polyethylene Glycol 17 gm 03/21/19 09:00 03/21/19 08:08 Miralax PO 17 gm DAILY NEELAM Administration Sodium Chloride 10 ml 03/20/19 15:29 03/20/19 17:20 Normal Saline Flush 0.9% IVP 10 ml PRN PRN Administration NEEDED PER PROVIDER ORDERS Sodium Chloride 10 ml 03/20/19 17:00 03/22/19 01:33 Normal Saline Flush 0.9% IVP Not Given 0100,0900,1700 NEELAM - Physical Exam Wound/Incisions: positive: Dressing dry and intact General Appearance: positive: No acute distress Extremities: positive: Joint swelling Neurologic/Psychiatric: positive: Oriented x3, CN's nml (2-12), Motor nml, Se nsation nml, Mood/affect nml Impression/Plan - Problem List Problem List: POD #1 Pt is healing well Pain under good control Ready for PT.
[2019-03-22] MEDS: ASPIRIN 325 MG TABLET PO SCH (08:16)
[2019-03-22] MEDS: FAMOTIDINE 20 MG TABLET PO SCH ×2 (08:16→10:29)
[2019-03-22] MEDS: MAGNESIUM OXIDE 400 MG TABLET PO SCH (08:16)
[2019-03-22] MEDS: METOPROLOL SUCCINATE 50 MG TABLET PO SCH (08:16)
[2019-03-22] MEDS: LISINOPRIL 20 MG TABLET PO SCH (08:16)
[2019-03-22] MEDS: POLYETHYLENE GLYCOL 3350 17 GM PACKET PO SCH (08:17)
[2019-03-22] MEDS: INSULIN ASPART 300 UNIT/3 ML PEN SUBQ SCH ×4 (08:17→20:48)
[2019-03-22] MEDS ORDERED: KETOROLAC 15 MG/ML VIAL IVP PRN (08:19)
--- NOTE | 2019-03-22 09:03 | XRAY Report ---
Reason: sob Procedure Date: 03/22/2019 Accession Number: [id number] / [id number] Procedure: XR - Chest 1 View X-Ray CPT Code: 40283 FULL RESULT: EXAM: CHEST RADIOGRAPHY EXAM DATE: 03/22/2019 08:34 AM. CLINICAL HISTORY: Shortness of breath. COMPARISON: CHEST 2 VIEW PA/LAT 01/30/2016 10:29 AM. TECHNIQUE: 1 view. FINDINGS: Lungs/Pleura: There is a subtle opacity at the right lung base and likely the retrocardiac left lung base, not well evaluated in absence of lateral radiograph. No sizable pleural effusion or pneumothorax. Mediastinum: Cardiomegaly and calcifications of the aortic arch have not significantly changed compared to 2016 when allowing for differences in technique. Other: None. IMPRESSION: Question bibasilar opacities which are not well-seen on a single AP portable view. RADIA
--- NOTE | 2019-03-22 10:36 | PROVIDER PROGRESS NOTE ---
Subjective - Prog Note Date Prog Note Date: 03/22/19 - Subjective Pt reports feeling: Improved Subjective: pt report her pain is better controlled. Nurse report oxycodone let pt some confused. Oxycodone is hold now. Add Toradol for short time. Pt denies fever, chill, cough, chest pain. Current Medications - Current Medications Current Medications: Active Medications Acetaminophen (Tylenol) 650 mg PO Q4HR PRN PRN Reason: Pain 1 to 4 Last Admin: 03/22/19 04:20 Dose: 650 mg Aspirin (Clifton) 325 mg PO DAILYWM [facility] Last Admin: 03/22/19 08:16 Dose: 325 mg Atorvastatin Calcium (Lipitor) 20 mg PO QPM [facility] Last Admin: 03/21/19 21:23 Dose: 20 mg Famotidine (Pepcid) 20 mg PO DAILY [facility] Last Admin: 03/22/19 10:29 Dose: 20 mg Hydralazine HCl (Apresoline Inj) 10 mg IVP QID PRN PRN Reason: Hypertensive Emergency Insulin Aspart (Novolog) 1 - 5 unit SUBQ 0800,1200,1700,2100 [facility]; Protocol Last Admin: 03/22/19 08:17 Dose: Not Given Ketorolac Tromethamine (Toradol Inj (15mg)) 15 mg IVP Q6HR PRN PRN Reason: PAIN Stop: 03/27/19 08:18 Lisinopril (Zestril) 30 mg PO DAILY [facility] Last Admin: 03/22/19 08:16 Dose: 30 mg Magnesium Oxide (Mag Ox) 400 mg PO DAILYWM [facility] Last Admin: 03/22/19 08:16 Dose: 400 mg Metoprolol Succinate (Toprol Xl) 50 mg PO DAILY [facility] Last Admin: 03/22/19 08:16 Dose: 50 mg Morphine Sulfate (Morphine (Carpuject)) 2 mg IVP Q2HR PRN PRN Reason: Pain 8 to 10 Last Admin: 03/21/19 04:55 Dose: 2 mg Ondansetron HCl (Zofran Inj) 4 mg IVP Q6HR PRN PRN Reason: Nausea / Vomiting Last Admin: 03/20/19 17:19 Dose: 4 mg Polyethylene Glycol (Miralax) 17 gm PO DAILY [facility] Last Admin: 03/22/19 08:17 Dose: Not Given Sodium Chloride (Normal Saline Flush 0.9%) 10 ml IVP PRN PRN PRN Reason: NEEDED PER PROVIDER ORDERS Last Admin: 03/20/19 17:20 Dose: 10 ml Sodium Chloride (Normal Saline Flush 0.9%) 10 ml IVP 0100,0900,1700 NEELAM Last Admin: 03/22/19 08:17 Dose: 10 ml Throat Lozenges (Cepacol) 1 lozenge MM Q2HR PRN PRN Reason: Throat pain Tramadol HCl (Ultram) 50 mg PO Q4HR PRN PRN Reason: PAIN Zolpidem Tartrate (Ambien) 5 mg PO QPM PRN PRN Reason: Insomnia Glucosamine Sulfate Dipot Chlr [Glucosamine] 500 mg PO DAILY 01/13/13 Lisinopril 40 mg PO DAILY 01/13/13 Metformin HCl [Glucophage Xr] 750 mg PO BID 01/13/13 Simvastatin [Zocor] 20 mg PO QPM 01/13/13 Cholecalciferol (Vitamin D3) [Vitamin D3] 400 unit PO DAILY 03/22/19 Metoprolol Tartrate 25 mg PO DAILY 03/22/19 cloNIDine [Catapres] 0.1 mg PO DAILY 03/22/19 Objective - Vital Signs/Intake & Output Reviewed Vital Signs: Yes Vital Signs: Vital Signs x48h Temp Pulse Resp BP Pulse Ox 03/22/19 07:06 37.1 C 78 16 147/49 H 93 03/22/19 06:45 37.1 C 03/22/19 04:05 37.7 C H 81 16 145/39 H 92 Intake & Output: Intake & Output 03/19/19 03/20/19 03/21/19 03/22/19 23:59 23:59 23:59 23:59 Intake Total 420 1260 1300 Output Total 300 1700 900 Balance 120 -440 400 - Objective General Appearance: positive: No acute distress, Alert. negative: Lethargic Eyes Bilateral: positive: Normal inspection, PERRL, No lid inflammation, Conjunctivae nml ENT: positive: ENT inspection nml, Pharynx nml, No signs of dehydration. negative: Purulent nasal drainage, Pharyngeal erythema, Oral lesions Neck: positive: Nml inspection, Thyroid nml, No JVD, Trachea midline. negative: Thyromegaly, Lymphadenopathy (R), Lymphadenopathy (L), Stiff neck, Swelling/bruising, Tracheal deviation Respiratory: positive: Chest non-tender, No respiratory distress. negative: Wheezes, Rales, Rhonchi Cardiovascular: positive: Regular rate & rhythm, No murmur, No gallop. negative: Irregularly irregular, Extrasystoles, Tachycardia, Bradycardia, JVD present, Systolic murmur, Diastolic murmur Peripheral Pulses: 2+ Radial (R), 2+ Radial (L), 2+ Dorsalis pedis (R), 2+ Dorsalis pedis (L) Abdomen: positive: Non-tender, No organomegaly, Nml bowel sounds, No distention. negative: Tenderness, Guarding, Rebound Back: positive: Nml inspection. negative: CVA tenderness (R), CVA tenderness (L) Skin: positive: Color nml, No rash, Warm, Dry. negative: Cyanosis, Diaphoresis, Pallor Extremities: positive: Non-tender. negative: Calf tenderness, Joint swelling, Kendy's sign/cords Neurologic/Psychiatric: positive: Oriented x3, Sensation nml, Mood/affect nml. negative: Weakness, Sensory loss, Facial droop, Slurred/abnml speech, Depressed mood/affect - Lab Results Fish Bones: 03/22/19 05:24 03/22/19 05:24 Other Labs: Lab Results x24hrs 03/22/19 03/22/19 Range/Units 05:24 05:24 WBC 9.7 (4.8-10.8) x10^3/uL RBC 4.02 L (4.20-5.40) 10^6/uL Hgb 11.9 L (12.0-16.0) g/dL Hct 38.0 (37.0-47.0) % MCV 94.5 (81.0-99.0) fL MCH 29.6 (27.0-31.0) pg MCHC 31.3 L (32.0-36.0) g/dL RDW 12.3 (12.0-15.0) % Plt Count 112 L (130-450) 10^3/uL MPV 12.3 H (7.9-10.8) fL Neut # (Auto) 7.8 H (1.5-6.6) 10^3/uL Lymph # (Auto) 1.0 L (1.5-3.5) 10^3/uL [place] # (Auto) 0.8 (0.0-1.0) 10^3/uL Eos # (Auto) 0.1 (0.0-0.7) 10^3/uL Baso # (Auto) 0.0 (0.0-0.1) 10^3/uL Absolute Nucleated RBC 0.00 x10^3/uL Nucleated RBC % 0.0 /100WBC Sodium 139 (135-145) mmol/L Potassium 3.9 (3.5-5.0) mmol/L Chloride 100 L (101-111) mmol/L Carbon Dioxide 30 (21-32) mmol/L Anion Gap 9.0 (6-13) BUN 14 (6-20) mg/dL Creatinine 0.9 (0.4-1.0) mg/dL Estimated GFR (MDRD) 60 L (>89) Glucose 128 H (70-100) mg/dL Calcium 8.6 (8.5-10.3) mg/dL ABX Reporting Has patient been on IV antibiotics over the past 48 hours?: No Sepsis Event Note (H) - Evaluation Current Stage of Sepsis: Ruled out Assessment/Plan - Problem List (1) Left displaced femoral neck fracture Impression: 03/22 S/P day one. pt seems to have better pain controlled. D/C Oxycodone which let pt some confused, add Toradol PRN for less than 5 days followup surgeon continue PT/OT continue incentive spirometry to prevention of pneumonia continue carbo control diet 03/21 s/p Bipolar replacement of left hip surgery, hemodynamic stable followup with surgeon pain control DVT prophylaxis, surgeon put Aspirin, continue PT/OT continue incentive spirometry to prevention of pneumonia continue carbo control diet pt had a fall, left hip pain immediately and she can not move on left hip. Xray reveals left femoral neck fracture. Dr. Morales was called. pt is planned to have surgery on tomorrow. consulted with orthopedics surgeon, will followup pain control NPO after midnight, hypoglycemia protocol, [facility] to check glucose. pt has hx of DM DVT prophylaxis dependent surgeon PT/OT after operation consult with aids social worker for s/p operation d/c plan. revised cardiac risk index for pre-operative risk is 6.0% for 30-day risk of , [place], or cardiac arrest. ordered ECHO, is pending now. (2) Fall Conclusion/Plan: pt has fall in home, put fall precaution protocol will check vitamin D3 (3) DM2 (diabetes mellitus, type 2) Conclusion/Plan: 03/22 good controlled glucose level, continue current slide scale 03/21 stable, continue slide scale, carbo control diet pt only took Metformin at home. Hold Metformin now will check A1C start Slide scale, ACHS, and hypoglycemia protocol (4) HTN (hypertension) Conclusion/Plan: 03/21 stable, continue home meds. increase Lisinopril to 30 mg daily pt had Lisinopril and metoprolol/HCTZ at home meds, will reconcile after pharmacy verify, add PRN hydralazine (5) HLD (hyperlipidemia) stable,lipitor 20 mg PM
[2019-03-22 10:46] LABS: BILIRUBIN,URINE NEGATIVE (NEGATIVE); CLARITY,URINE CLEAR (CLEAR); GLUCOSE, URINE (UA) NEGATIVE (NEGATIVE); KETONES,URINE (UA) NEGATIVE (NEGATIVE); LEUKOCYTE ESTERASE, URINE NEGATIVE (NEGATIVE); NITRITE,URINE NEGATIVE (NEGATIVE); OCCULT BLOOD,URINE LARGE (NEGATIVE); PH,URINE 5.5 PH (5.0-7.5); PROTEIN,URINE NEGATIVE (NEGATIVE); UROBILINOGEN,URINE 0.2 (NORMAL) E.U./dL (NORMAL)
[2019-03-22 10:58] LABS: BACTERIA,URINE Rare /HPF (None Seen); RBC,URINE TNTC /HPF (0-5); SQUAMOUS EPITHELIAL CELL,UR NONE SEEN (<= Few)
[2019-03-22] MEDS: CHOLECALCIFEROL 1,000 UNIT TABLET PO SCH (12:34)
[2019-03-22] MEDS: CALCIUM CARBONATE CHEW 500 MG TABLET PO SCH ×2 (12:34→20:45)
[2019-03-22] MEDS: ATORVASTATIN 10 MG TABLET PO SCH (20:45)
[2019-03-22] MEDS: traMADol 50 MG TABLET PO PRN (20:45)
[2019-03-23] MEDS: SODIUM CHLORIDE FLUSH 0.9% 10 ML SYRINGE IVP SCH ×4 (00:07→23:45)
[2019-03-23 05:32] LABS: BASOPHILS % (AUTO) 0.2 %; EOSINOPHILS # (AUTO) 0.4 10^3/uL (0.0-0.7); EOSINOPHILS % (AUTO) 4.7 %; HGB - HEMOGLOBIN 10.8 g/dL (12.0-16.0); LYMPHOCYTES # (AUTO) 1.2 10^3/uL (1.5-3.5); LYMPHOCYTES % (AUTO) 13.9 %; MEAN CORPUSCULAR HEMOGLOBIN 29.3 pg (27.0-31.0); MEAN CORPUSCULAR VOLUME 94.3 fL (81.0-99.0); MEAN PLATELET VOLUME 12.5 fL (7.9-10.8); MONOCYTES % (AUTO) 11.3 %; NEUTROPHILS # (AUTO) 6.1 10^3/uL (1.5-6.6); NEUTROPHILS % (AUTO) 69.6 %; PLT - PLATELET COUNT 115 10^3/uL (130-450); RED BLOOD COUNT 3.69 10^6/uL (4.20-5.40); RED CELL DISTRIBUTION WIDTH 12.4 % (12.0-15.0); WHITE BLOOD COUNT 8.8 x10^3/uL (4.8-10.8)
[2019-03-23 05:41] LABS: CALCIUM 8.7 mg/dL (8.5-10.3); CREATININE 0.8 mg/dL (0.4-1.0)
--- NOTE | 2019-03-23 06:47 | PROVIDER PROGRESS NOTE ---
Subjective - General Admit Date: 03/20/19 Procedure Date: 03/21/19 Post Op Days: 2 Procedure Performed: Left Bipolar hip replacement - Review of Systems Wound/Incisions: positive: Dressing dry and intact General: positive: Fatigue Musculoskeletal: positive: Joint pain Psychiatric: positive: No symptoms Objective - Patient Data Reviewed Vital Signs: Yes Vital Signs: Vital Signs x48h Temp Pulse Resp BP Pulse Ox 03/23/19 04:08 37.0 C 76 17 150/85 H 92 03/23/19 00:17 37.4 C 73 18 176/54 H 95 Intake & Output: Intake and Output Totals x24h 03/21/19 03/22/19 03/23/19 23:59 23:59 23:59 Intake Total 1260 1840 540 Output Total 1700 2100 Balance -440 -260 540 - Lab Results Lab Results: 03/23/19 04:43 03/23/19 04:43 Other Lab Results: Lab Results x24hrs 03/23/19 03/23/19 03/22/19 Range/Units 04:43 04:43 17:05 WBC 8.8 (4.8-10.8) x10^3/uL RBC 3.69 L (4.20-5.40) 10^6/uL Hgb 10.8 L (12.0-16.0) g/dL Hct 34.8 L (37.0-47.0) % MCV 94.3 (81.0-99.0) fL MCH 29.3 (27.0-31.0) pg MCHC 31.0 L (32.0-36.0) g/dL RDW 12.4 (12.0-15.0) % Plt Count 115 L (130-450) 10^3/uL MPV 12.5 H (7.9-10.8) fL Neut # (Auto) 6.1 (1.5-6.6) 10^3/uL Lymph # (Auto) 1.2 L (1.5-3.5) 10^3/uL Tyler # (Auto) 1.0 (0.0-1.0) 10^3/uL Eos # (Auto) 0.4 (0.0-0.7) 10^3/uL Baso # (Auto) 0.0 (0.0-0.1) 10^3/uL Absolute Nucleated RBC 0.00 x10^3/uL Nucleated RBC % 0.0 /100WBC Sodium 135 (135-145) mmol/L Potassium 3.9 (3.5-5.0) mmol/L Chloride 97 L (101-111) mmol/L Carbon Dioxide 31 (21-32) mmol/L Anion Gap 7.0 (6-13) BUN 18 (6-20) mg/dL Creatinine 0.8 (0.4-1.0) mg/dL Estimated GFR (MDRD) 68 L (>89) Glucose 131 H (70-100) mg/dL Calcium 8.7 (8.5-10.3) mg/dL Magnesium (1.7-2.8) mg/dL Troponin I High Sens 19.1 H* (2.3-14.8) pg/mL Urine Color Urine Clarity (CLEAR) Urine pH (5.0-7.5) PH Ur Specific [place] (1.002-1.030) Urine Protein (NEGATIVE) mg/dL Urine Glucose (UA) (NEGATIVE) mg/dL Urine Ketones (NEGATIVE) mg/dL Urine Occult Blood (NEGATIVE) Urine Nitrite (NEGATIVE) Urine Bilirubin (NEGATIVE) Urine Urobilinogen (NORMAL) E.U./dL Ur Leukocyte Esterase (NEGATIVE) Urine RBC (0-5) /HPF Urine WBC (0-5) /HPF Ur Squamous Epith Cells (<= Few) Urine Bacteria (None Seen) /HPF Urine Culture Comments 03/22/19 03/22/19 03/22/19 Range/Units 14:14 14:14 11:02 WBC (4.8-10.8) x10^3/uL RBC (4.20-5.40) 10^6/uL Hgb (12.0-16.0) g/dL Hct (37.0-47.0) % MCV (81.0-99.0) fL MCH (27.0-31.0) pg MCHC (32.0-36.0) g/dL RDW (12.0-15.0) % Plt Count (130-450) 10^3/uL MPV (7.9-10.8) fL Neut # (Auto) (1.5-6.6) 10^3/uL Lymph # (Auto) (1.5-3.5) 10^3/uL Tyler # (Auto) (0.0-1.0) 10^3/uL Eos # (Auto) (0.0-0.7) 10^3/uL Baso # (Auto) (0.0-0.1) 10^3/uL Absolute Nucleated RBC x10^3/uL Nucleated RBC % /100WBC Sodium (135-145) mmol/L Potassium (3.5-5.0) mmol/L Chloride (101-111) mmol/L Carbon Dioxide (21-32) mmol/L Anion Gap (6-13) BUN (6-20) mg/dL Creatinine (0.4-1.0) mg/dL Estimated GFR (MDRD) (>89) Glucose (70-100) mg/dL Calcium (8.5-10.3) mg/dL Magnesium 2.0 (1.7-2.8) mg/dL Troponin I High Sens 20.8 H* 19.1 H* (2.3-14.8) pg/mL Urine Color Urine Clarity (CLEAR) Urine pH (5.0-7.5) PH Ur Specific [place] (1.002-1.030) Urine Protein (NEGATIVE) mg/dL Urine Glucose (UA) (NEGATIVE) mg/dL Urine Ketones (NEGATIVE) mg/dL Urine Occult Blood (NEGATIVE) Urine Nitrite (NEGATIVE) Urine Bilirubin (NEGATIVE) Urine Urobilinogen (NORMAL) E.U./dL Ur Leukocyte Esterase (NEGATIVE) Urine RBC (0-5) /HPF Urine WBC (0-5) /HPF Ur Squamous Epith Cells (<= Few) Urine Bacteria (None Seen) /HPF Urine Culture Comments 03/22/19 Range/Units 10:39 WBC (4.8-10.8) x10^3/uL RBC (4.20-5.40) 10^6/uL Hgb (12.0-16.0) g/dL Hct (37.0-47.0) % MCV (81.0-99.0) fL MCH (27.0-31.0) pg MCHC (32.0-36.0) g/dL RDW (12.0-15.0) % Plt Count (130-450) 10^3/uL MPV (7.9-10.8) fL Neut # (Auto) (1.5-6.6) 10^3/uL Lymph # (Auto) (1.5-3.5) 10^3/uL Tyler # (Auto) (0.0-1.0) 10^3/uL Eos # (Auto) (0.0-0.7) 10^3/uL Baso # (Auto) (0.0-0.1) 10^3/uL Absolute Nucleated RBC x10^3/uL Nucleated RBC % /100WBC Sodium (135-145) mmol/L Potassium (3.5-5.0) mmol/L Chloride (101-111) mmol/L Carbon Dioxide (21-32) mmol/L Anion Gap (6-13) BUN (6-20) mg/dL Creatinine (0.4-1.0) mg/dL Estimated GFR (MDRD) (>89) Glucose (70-100) mg/dL Calcium (8.5-10.3) mg/dL Magnesium (1.7-2.8) mg/dL Troponin I High Sens (2.3-14.8) pg/mL Urine Color YELLOW Urine Clarity CLEAR (CLEAR) Urine pH 5.5 (5.0-7.5) PH Ur Specific [place] 1.010 (1.002-1.030) Urine Protein NEGATIVE (NEGATIVE) mg/dL Urine Glucose (UA) NEGATIVE (NEGATIVE) mg/dL Urine Ketones NEGATIVE (NEGATIVE) mg/dL Urine Occult Blood LARGE H (NEGATIVE) Urine Nitrite NEGATIVE (NEGATIVE) Urine Bilirubin NEGATIVE (NEGATIVE) Urine Urobilinogen 0.2 (NORMAL) (NORMAL) E.U./dL Ur Leukocyte Esterase NEGATIVE (NEGATIVE) Urine RBC TNTC H (0-5) /HPF Urine WBC 0-3 (0-5) /HPF Ur Squamous Epith Cells NONE SEEN (<= Few) Urine Bacteria Rare (None Seen) /HPF Urine Culture Comments NOT INDICATED - Current Medications Current Medications: Current Medications Generic Name Dose Route Start Last Admin Trade Name Freq PRN Reason Stop Dose Admin Acetaminophen 650 mg 03/20/19 15:29 03/22/19 16:24 Tylenol PO 650 mg Q4HR PRN Administration Pain 1 to 4 Aspirin 325 mg 03/22/19 08:00 03/22/19 08:16 Clifton PO 325 mg DAILYWM NEELAM Administration Atorvastatin Calcium 20 mg 03/21/19 21:00 03/22/19 20:45 Lipitor PO 20 mg QPM NEELAM Administration Calcium Carbonate/Glycine 500 mg 03/22/19 12:00 03/22/19 20:45 Tums PO 500 mg BID NEELAM Administration Cholecalciferol 2,000 unit 03/22/19 12:00 03/22/19 12:34 Vitamin D3 PO 2,000 unit DAILY NEELAM Administration Famotidine 20 mg 03/22/19 08:51 03/22/19 10:29 Pepcid PO 20 mg DAILY NEELAM Administration Insulin Aspart 1 - 5 unit 03/21/19 17:00 03/22/19 20:48 Novolog SUBQ Not Given 0800,1200,1700,2100 COUNT INCLUDES THE [facility] Protocol Ketorolac Tromethamine 15 mg 03/22/19 08:19 03/22/19 11:30 Toradol Inj (15mg) IVP 03/27/19 08:18 15 mg Q6HR PRN Administration PAIN Lisinopril 30 mg 03/21/19 09:00 03/22/19 08:16 Zestril PO 30 mg DAILY NEELAM Administration Magnesium Oxide 400 mg 03/21/19 08:00 03/22/19 08:16 Mag Ox PO 400 mg DAILYWM NEELAM Administration Metoprolol Succinate 50 mg 03/21/19 09:00 03/22/19 08:16 Toprol Xl PO 50 mg DAILY NEELAM Administration Morphine Sulfate 2 mg 03/20/19 15:29 03/21/19 04:55 Morphine (Carpuject) IVP 2 mg Q2HR PRN Administration Pain 8 to 10 Ondansetron HCl 4 mg 03/20/19 15:29 03/20/19 17:19 Zofran Inj IVP 4 mg Q6HR PRN Administration Nausea / Vomiting Polyethylene Glycol 17 gm 03/21/19 09:00 03/22/19 08:17 Miralax PO Not Given DAILY COUNT INCLUDES THE [facility] Sodium Chloride 10 ml 03/20/19 15:29 03/20/19 17:20 Normal Saline Flush 0.9% IVP 10 ml PRN PRN Administration NEEDED PER PROVIDER ORDERS Sodium Chloride 10 ml 03/20/19 17:00 03/23/19 00:07 Normal Saline Flush 0.9% IVP 10 ml 0100,0900,1700 NEELAM Administration Tramadol HCl 50 mg 03/22/19 08:37 03/22/19 20:45 Ultram PO 50 mg Q4HR PRN Administration PAIN - Physical Exam Wound/Incisions: positive: Dressing dry and intact Neurologic/Psychiatric: positive: Oriented x3, CN's nml (2-12), Motor nml, Sensation nml, Mood/affect nml Impression/Plan - Problem List Problem List: POD#2 Progressing well. Continue PT Look for SNF for d/c.
[2019-03-23] MEDS: POLYETHYLENE GLYCOL 3350 17 GM PACKET PO SCH (08:49)
[2019-03-23] MEDS: CALCIUM CARBONATE CHEW 500 MG TABLET PO SCH ×2 (08:49→20:08)
[2019-03-23] MEDS: METOPROLOL SUCCINATE 25 MG TABLET PO SCH (08:50)
[2019-03-23] MEDS: CHOLECALCIFEROL 1,000 UNIT TABLET PO SCH (08:50)
[2019-03-23] MEDS: MAGNESIUM OXIDE 400 MG TABLET PO SCH (08:50)
[2019-03-23] MEDS: ASPIRIN 325 MG TABLET PO SCH (08:50)
[2019-03-23] MEDS: cloNIDine 0.1 MG TABLET PO SCH (08:50)
[2019-03-23] MEDS: INSULIN ASPART 300 UNIT/3 ML PEN SUBQ SCH ×4 (08:51→21:21)
[2019-03-23] MEDS: FAMOTIDINE 20 MG TABLET PO SCH (08:51)
[2019-03-23] MEDS: LISINOPRIL 20 MG TABLET PO SCH (08:51)
--- NOTE | 2019-03-23 08:57 | XRAY Report ---
Reason: cough, hypoxia, SOB Procedure Date: 03/23/2019 Accession Number: [id number] / [id number] Procedure: XR - Chest 2 View X-Ray CPT Code: 54821 FULL RESULT: EXAM: CHEST RADIOGRAPHY EXAM DATE: 03/23/2019 08:40 AM. CLINICAL HISTORY: Cough, hypoxia, shortness of breath. COMPARISON: CHEST 1 VIEW 03/22/2019 8:16 AM. TECHNIQUE: 2 views. FINDINGS: Lungs/Pleura: Interval improvement of aeration, persistent with decreased alveolar interstitial opacification bilaterally. Borderline hyperinflation. No pleural fluid collections. Mediastinum: Heart and mediastinal contours are unremarkable. Other: None. IMPRESSION: Interval improvement of aeration. RADIA
[2019-03-23] MEDS ORDERED: METOPROLOL TARTRATE 25 MG TABLET PO SCH (09:00)
[2019-03-23] MEDS ORDERED: CHOLECALCIFEROL 400 UNIT PO SCH (09:00)
--- NOTE | 2019-03-23 10:28 | PROVIDER PROGRESS NOTE ---
Subjective - Prog Note Date Prog Note Date: 03/23/19 - Subjective Pt reports feeling: Improved Subjective: pt report she felt better for her pain in left hip. she report some cough on last night without sputum. She denies fever, chill, shortness of breath, chest pain. Current Medications - Current Medications Current Medications: Active Medications Acetaminophen (Tylenol) 650 mg PO Q4HR PRN PRN Reason: Pain 1 to 4 Last Admin: 03/22/19 16:24 Dose: 650 mg Aspirin (Clifton) 325 mg PO DAILYWM [facility] Last Admin: 03/23/19 08:50 Dose: 325 mg Atorvastatin Calcium (Lipitor) 20 mg PO QPM [facility] Last Admin: 03/22/19 20:45 Dose: 20 mg Calcium Carbonate/Glycine (Tums) 500 mg PO BID [facility] Last Admin: 03/23/19 08:49 Dose: 500 mg Cholecalciferol (Vitamin D3) 2,000 unit PO DAILY [facility] Last Admin: 03/23/19 08:50 Dose: 2,000 unit Clonidine HCl (Catapres) 0.1 mg PO DAILY [facility] Last Admin: 03/23/19 08:50 Dose: 0.1 mg Famotidine (Pepcid) 20 mg PO DAILY [facility] Last Admin: 03/23/19 08:51 Dose: 20 mg Hydralazine HCl (Apresoline Inj) 10 mg IVP QID PRN PRN Reason: Hypertensive Emergency Insulin Aspart (Novolog) 1 - 5 unit SUBQ 0800,1200,1700,2100 [facility]; Protocol Last Admin: 03/23/19 08:51 Dose: Not Given Ketorolac Tromethamine (Toradol Inj (15mg)) 15 mg IVP Q6HR PRN PRN Reason: PAIN Stop: 03/27/19 08:18 Last Admin: 03/22/19 11:30 Dose: 15 mg Lisinopril (Zestril) 40 mg PO DAILY [facility] Last Admin: 03/23/19 08:51 Dose: 40 mg Magnesium Oxide (Mag Ox) 400 mg PO DAILYWM [facility] Last Admin: 03/23/19 08:50 Dose: 400 mg Metoprolol Succinate (Toprol Xl) 25 mg PO DAILY [facility] Last Admin: 03/23/19 08:50 Dose: 25 mg Morphine Sulfate (Morphine (Carpuject)) 2 mg IVP Q2HR PRN PRN Reason: Pain 8 to 10 Last Admin: 03/21/19 04:55 Dose: 2 mg Ondansetron HCl (Zofran Inj) 4 mg IVP Q6HR PRN PRN Reason: Nausea / Vomiting Last Admin: 03/20/19 17:19 Dose: 4 mg Polyethylene Glycol (Miralax) 17 gm PO DAILY [facility] Last Admin: 03/23/19 08:49 Dose: 17 gm Sodium Chloride (Normal Saline Flush 0.9%) 10 ml IVP PRN PRN PRN Reason: NEEDED PER PROVIDER ORDERS Last Admin: 03/20/19 17:20 Dose: 10 ml Sodium Chloride (Normal Saline Flush 0.9%) 10 ml IVP 0100,0900,1700 [facility] Last Admin: 03/23/19 08:51 Dose: 10 ml Throat Lozenges (Cepacol) 1 lozenge MM Q2HR PRN PRN Reason: Throat pain Tramadol HCl (Ultram) 50 mg PO Q4HR PRN PRN Reason: PAIN Last Admin: 03/22/19 20:45 Dose: 50 mg Zolpidem Tartrate (Ambien) 5 mg PO QPM PRN PRN Reason: Insomnia Glucosamine Sulfate Dipot Chlr [Glucosamine] 500 mg PO DAILY 01/13/13 Lisinopril 40 mg PO DAILY 01/13/13 Metformin HCl [Glucophage Xr] 750 mg PO BID 01/13/13 Simvastatin [Zocor] 20 mg PO QPM 01/13/13 Cholecalciferol (Vitamin D3) [Vitamin D3] 400 unit PO DAILY 03/22/19 Metoprolol Tartrate 25 mg PO DAILY 03/22/19 cloNIDine [Catapres] 0.1 mg PO DAILY 03/22/19 Objective - Vital Signs/Intake & Output Vital Signs: Vital Signs x48h Temp Pulse Resp BP Pulse Ox 03/23/19 07:38 37.1 C 74 17 152/45 H 97 03/23/19 04:08 37.0 C 76 17 150/85 H 92 Intake & Output: Intake & Output 03/20/19 03/21/19 03/22/19 03/23/19 23:59 23:59 23:59 23:59 Intake Total 420 1260 1840 690 Output Total 300 1700 2100 Balance 120 -440 -260 690 - Objective General Appearance: positive: No acute distress, Alert. negative: Lethargic Eyes Bilateral: positive: Normal inspection, PERRL, No lid inflammation, Conjunctivae nml ENT: positive: ENT inspection nml, Pharynx nml, No signs of dehydration. negati ve: Purulent nasal drainage, Pharyngeal erythema, Oral lesions Neck: positive: Nml inspection, Thyroid nml, No JVD, Trachea midline. negative: Thyromegaly, Lymphadenopathy (R), Lymphadenopathy (L), Stiff neck, Swelling/bruising, Tracheal deviation Respiratory: positive: Chest non-tender, No respiratory distress, Breath sounds nml. negative: Wheezes, Rales, Rhonchi Cardiovascular: positive: Regular rate & rhythm, No murmur, No gallop. negative: Irregularly irregular, Extrasystoles, Tachycardia, Bradycardia, JVD present, Systolic murmur, Diastolic murmur Peripheral Pulses: 2+ Radial (R), 2+ Radial (L), 2+ Dorsalis pedis (R), 2+ Dorsalis pedis (L) Abdomen: positive: Non-tender, No organomegaly, Nml bowel sounds, No distention. negative: Tenderness, Guarding, Rebound Back: positive: Nml inspection. negative: CVA tenderness (R), CVA tenderness (L) Skin: positive: Color nml, No rash, Warm, Dry. negative: Cyanosis, Diaphoresis, Pallor Extremities: positive: Non-tender. negative: Calf tenderness, Joint swelling, Kendy's sign/cords Neurologic/Psychiatric: positive: Oriented x3, Sensation nml, Mood/affect nml. negative: Weakness, Sensory loss, Facial droop, Slurred/abnml speech, Depressed mood/affect - Lab Results Fish Bones: 03/23/19 04:43 03/23/19 04:43 Other Labs: Lab Results x24hrs 03/23/19 03/23/19 03/22/19 Range/Units 04:43 04:43 17:05 WBC 8.8 (4.8-10.8) x10^3/uL RBC 3.69 L (4.20-5.40) 10^6/uL Hgb 10.8 L (12.0-16.0) g/dL Hct 34.8 L (37.0-47.0) % MCV 94.3 (81.0-99.0) fL MCH 29.3 (27.0-31.0) pg MCHC 31.0 L (32.0-36.0) g/dL RDW 12.4 (12.0-15.0) % Plt Count 115 L (130-450) 10^3/uL MPV 12.5 H (7.9-10.8) fL Neut # (Auto) 6.1 (1.5-6.6) 10^3/uL Lymph # (Auto) 1.2 L (1.5-3.5) 10^3/uL [place] # (Auto) 1.0 (0.0-1.0) 10^3/uL Eos # (Auto) 0.4 (0.0-0.7) 10^3/uL Baso # (Auto) 0.0 (0.0-0.1) 10^3/uL Absolute Nucleated RBC 0.00 x10^3/uL Nucleated RBC % 0.0 /100WBC Sodium 135 (135-145) mmol/L Potassium 3.9 (3.5-5.0) mmol/L Chloride 97 L (101-111) mmol/L Carbon Dioxide 31 (21-32) mmol/L Anion Gap 7.0 (6-13) BUN 18 (6-20) mg/dL Creatinine 0.8 (0.4-1.0) mg/dL Estimated GFR (MDRD) 68 L (>89) Glucose 131 H (70-100) mg/dL Calcium 8.7 (8.5-10.3) mg/dL Magnesium (1.7-2.8) mg/dL Troponin I High Sens 19.1 H* (2.3-14.8) pg/mL Urine Color Urine Clarity (CLEAR) Urine pH (5.0-7.5) PH Ur Specific [place] (1.002-1.030) Urine Protein (NEGATIVE) mg/dL Urine Glucose (UA) (NEGATIVE) mg/dL Urine Ketones (NEGATIVE) mg/dL Urine Occult Blood (NEGATIVE) Urine Nitrite (NEGATIVE) Urine Bilirubin (NEGATIVE) Urine Urobilinogen (NORMAL) E.U./dL Ur Leukocyte Esterase (NEGATIVE) Urine RBC (0-5) /HPF Urine WBC (0-5) /HPF Ur Squamous Epith Cells (<= Few) Urine Bacteria (None Seen) /HPF Urine Culture Comments 03/22/19 03/22/19 03/22/19 Range/Units 14:14 14:14 11:02 WBC (4.8-10.8) x10^3/uL RBC (4.20-5.40) 10^6/uL Hgb (12.0-16.0) g/dL Hct (37.0-47.0) % MCV (81.0-99.0) fL MCH (27.0-31.0) pg MCHC (32.0-36.0) g/dL RDW (12.0-15.0) % Plt Count (130-450) 10^3/uL MPV (7.9-10.8) fL Neut # (Auto) (1.5-6.6) 10^3/uL Lymph # (Auto) (1.5-3.5) 10^3/uL [place] # (Auto) (0.0-1.0) 10^3/uL Eos # (Auto) (0.0-0.7) 10^3/uL Baso # (Auto) (0.0-0.1) 10^3/uL Absolute Nucleated RBC x10^3/uL Nucleated RBC % /100WBC Sodium (135-145) mmol/L Potassium (3.5-5.0) mmol/L Chloride (101-111) mmol/L Carbon Dioxide (21-32) mmol/L Anion Gap (6-13) BUN (6-20) mg/dL Creatinine (0.4-1.0) mg/dL Estimated GFR (MDRD) (>89) Glucose (70-100) mg/dL Calcium (8.5-10.3) mg/dL Magnesium 2.0 (1.7-2.8) mg/dL Troponin I High Sens 20.8 H* 19.1 H* (2.3-14.8) pg/mL Urine Color Urine Clarity (CLEAR) Urine pH (5.0-7.5) PH Ur Specific [place] (1.002-1.030) Urine Protein (NEGATIVE) mg/dL Urine Glucose (UA) (NEGATIVE) mg/dL Urine Ketones (NEGATIVE) mg/dL Urine Occult Blood (NEGATIVE) Urine Nitrite (NEGATIVE) Urine Bilirubin (NEGATIVE) Urine Urobilinogen (NORMAL) E.U./dL Ur Leukocyte Esterase (NEGATIVE) Urine RBC (0-5) /HPF Urine WBC (0-5) /HPF Ur Squamous Epith Cells (<= Few) Urine Bacteria (None Seen) /HPF Urine Culture Comments 03/22/19 Range/Units 10:39 WBC (4.8-10.8) x10^3/uL RBC (4.20-5.40) 10^6/uL Hgb (12.0-16.0) g/dL Hct (37.0-47.0) % MCV (81.0-99.0) fL MCH (27.0-31.0) pg MCHC (32.0-36.0) g/dL RDW (12.0-15.0) % Plt Count (130-450) 10^3/uL MPV (7.9-10.8) fL Neut # (Auto) (1.5-6.6) 10^3/uL Lymph # (Auto) (1.5-3.5) 10^3/uL [place] # (Auto) (0.0-1.0) 10^3/uL Eos # (Auto) (0.0-0.7) 10^3/uL Baso # (Auto) (0.0-0.1) 10^3/uL Absolute Nucleated RBC x10^3/uL Nucleated RBC % /100WBC Sodium (135-145) mmol/L Potassium (3.5-5.0) mmol/L Chloride (101-111) mmol/L Carbon Dioxide (21-32) mmol/L Anion Gap (6-13) BUN (6-20) mg/dL Creatinine (0.4-1.0) mg/dL Estimated GFR (MDRD) (>89) Glucose (70-100) mg/dL Calcium (8.5-10.3) mg/dL Magnesium (1.7-2.8) mg/dL Troponin I High Sens (2.3-14.8) pg/mL Urine Color YELLOW Urine Clarity CLEAR (CLEAR) Urine pH 5.5 (5.0-7.5) PH Ur Specific [place] 1.010 (1.002-1.030) Urine Protein NEGATIVE (NEGATIVE) mg/dL Urine Glucose (UA) NEGATIVE (NEGATIVE) mg/dL Urine Ketones NEGATIVE (NEGATIVE) mg/dL Urine Occult Blood LARGE H (NEGATIVE) Urine Nitrite NEGATIVE (NEGATIVE) Urine Bilirubin NEGATIVE (NEGATIVE) Urine Urobilinogen 0.2 (NORMAL) (NORMAL) E.U./dL Ur Leukocyte Esterase NEGATIVE (NEGATIVE) Urine RBC TNTC H (0-5) /HPF Urine WBC 0-3 (0-5) /HPF Ur Squamous Epith Cells NONE SEEN (<= Few) Urine Bacteria Rare (None Seen) /HPF Urine Culture Comments NOT INDICATED ABX Reporting Has patient been on IV antibiotics over the past 48 hours?: No Sepsis Event Note (H) - Evaluation Current Stage of Sepsis: Ruled out Assessment/Plan - Problem List (1) Left displaced femoral neck fracture Impression: 03/23 s/p day two, continue PT/OT, and pain control 03/22 S/P day one. pt seems to have better pain controlled. D/C Oxycodone which let pt some confused, add Toradol PRN for less than 5 days followup surgeon continue PT/OT continue incentive spirometry to prevention of pneumonia continue carbo control diet 03/21 s/p Bipolar replacement of left hip surgery, hemodynamic stable followup with surgeon pain control DVT prophylaxis, surgeon put Aspirin, continue PT/OT continue incentive spirometry to prevention of pneumonia continue carbo control diet pt had a fall, left hip pain immediately and she can not move on left hip. Xray reveals left femoral neck fracture. Dr. Morales was called. pt is planned to have surgery on tomorrow. consulted with orthopedics surgeon, will followup pain control NPO after midnight, hypoglycemia protocol, [facility] to check glucose. pt has hx of DM DVT prophylaxis dependent surgeon PT/OT after operation consult with social service technician for s/p operation d/c plan. revised cardiac risk index for pre-operative risk is 6.0% for 30-day risk of , ME, or cardiac arrest. ordered ECHO, is pending now. (2) Fall Conclusion/Plan: pt has fall in home, put fall precaution protocol will check vitamin D3 (3) DM2 (diabetes mellitus, type 2) Conclusion/Plan: 03/22 good controlled glucose level, continue current slide scale 03/21 stable, continue slide scale, carbo control diet pt only took Metformin at home. Hold Metformin now will check A1C start Slide scale, ACHS, and hypoglycemia protocol (4) HTN (hypertension) Conclusion/Plan: 03/23 reconcile home BP meds, vital monitor 03/21 stable, continue home meds. increase Lisinopril to 30 mg daily pt had Lisinopril and metoprolol/HCTZ at home meds, will reconcile after pharmacy verify, add PRN hydralazine (5) HLD (hyperlipidemia) stable,lipitor 20 mg PM (6) cough 03/23 Dry cough, CXR is pending. pt has no fever, and normal WBC continue incentive spirometry continue PT/OT ambulate, prevention of PNA
[2019-03-23] MEDS ORDERED: ePHEDrine 50 MG/ML VIAL IVP ONE (12:36)
[2019-03-23] MEDS ORDERED: ESMOLOL 100 MG/10 ML VIAL IVP ONE (12:36)
[2019-03-23] MEDS ORDERED: KETAMINE 500 MG/10 ML VIAL IVP ONE (12:36)
[2019-03-23] MEDS ORDERED: ROCURONIUM 50 MG/5 ML VIAL IVP ONE (12:36)
[2019-03-23] MEDS ORDERED: ACETAMINOPHEN 1,000 MG/100 ML 100 ML IV ONE (12:36)
[2019-03-23] MEDS ORDERED: PROPOFOL 200 MG/20 ML VIAL IVP ONE (12:36)
[2019-03-23] MEDS ORDERED: MAGNESIUM SULFATE 1 GM/2 ML VIAL IV ONE (12:36)
[2019-03-23] MEDS ORDERED: ONDANSETRON 4 MG/2 ML VIAL IVP ONE (12:36)
[2019-03-23] MEDS ORDERED: GLYCOPYRROLATE 1 MG/5 ML VIAL IVP ONE (12:36)
[2019-03-23] MEDS ORDERED: NEOSTIGMINE 1 MG/1 ML 10 ML MDV IVP ONE (12:36)
[2019-03-23] MEDS ORDERED: fentaNYL 100 MCG/2 ML VIAL IVP ONE (12:36)
[2019-03-23] MEDS: ATORVASTATIN 10 MG TABLET PO SCH (20:08)
[2019-03-23] MEDS: ACETAMINOPHEN 325 MG TABLET PO PRN (22:29)
[2019-03-24 05:26] LABS: BASOPHILS % (AUTO) 0.5 %; EOSINOPHILS # (AUTO) 0.3 10^3/uL (0.0-0.7); EOSINOPHILS % (AUTO) 4.3 %; HGB - HEMOGLOBIN 10.2 g/dL (12.0-16.0); LYMPHOCYTES # (AUTO) 1.5 10^3/uL (1.5-3.5); LYMPHOCYTES % (AUTO) 22.6 %; MEAN CORPUSCULAR HEMOGLOBIN 29.8 pg (27.0-31.0); MEAN CORPUSCULAR HGB CONC 31.3 g/dL (32.0-36.0); MEAN CORPUSCULAR VOLUME 95.3 fL (81.0-99.0); MEAN PLATELET VOLUME 12.4 fL (7.9-10.8); MONOCYTES # (AUTO) 0.8 10^3/uL (0.0-1.0); MONOCYTES % (AUTO) 11.9 %; NEUTROPHILS % (AUTO) 60.4 %; PLT - PLATELET COUNT 124 10^3/uL (130-450); RED BLOOD COUNT 3.42 10^6/uL (4.20-5.40); RED CELL DISTRIBUTION WIDTH 12.2 % (12.0-15.0); WHITE BLOOD COUNT 6.5 x10^3/uL (4.8-10.8)
[2019-03-24 05:33] LABS: CREATININE 0.8 mg/dL (0.4-1.0)
[2019-03-24] MEDS: INSULIN ASPART 300 UNIT/3 ML PEN SUBQ SCH ×2 (07:54→11:24)
[2019-03-24] MEDS: LISINOPRIL 20 MG TABLET PO SCH (08:31)
[2019-03-24] MEDS: POLYETHYLENE GLYCOL 3350 17 GM PACKET PO SCH (08:31)
[2019-03-24] MEDS: MAGNESIUM OXIDE 400 MG TABLET PO SCH (08:31)
[2019-03-24] MEDS: ASPIRIN 325 MG TABLET PO SCH (08:31)
[2019-03-24] MEDS: CALCIUM CARBONATE CHEW 500 MG TABLET PO SCH (08:32)
[2019-03-24] MEDS: traMADol 50 MG TABLET PO PRN (08:32)
[2019-03-24] MEDS: FAMOTIDINE 20 MG TABLET PO SCH (08:32)
[2019-03-24] MEDS: METOPROLOL SUCCINATE 25 MG TABLET PO SCH (08:32)
[2019-03-24] MEDS: cloNIDine 0.1 MG TABLET PO SCH (08:32)
[2019-03-24] MEDS: CHOLECALCIFEROL 1,000 UNIT TABLET PO SCH (08:32)
[2019-03-24] MEDS: SODIUM CHLORIDE FLUSH 0.9% 10 ML SYRINGE IVP SCH (08:33)
[2019-03-24] MEDS ORDERED: DOCUSATE SODIUM 250 MG CAPSULE PO SCH (09:00)
[2019-03-24] MEDS ORDERED: SENNA 8.6 MG TABLET PO SCH (09:00)
--- NOTE | 2019-03-24 11:35 | CT Report ---
Reason: AMS Procedure Date: 03/24/2019 Accession Number: [id number] / [id number] Procedure: CT - HEAD WO CPT Code: FULL RESULT: EXAM: CT HEAD EXAM DATE: 03/24/2019 10:48 AM. CLINICAL HISTORY: Altered mental status. COMPARISON: None. TECHNIQUE: Multiaxial CT images were obtained from the foramen magnum to the vertex. Reformats: Sagittal and coronal. IV contrast: None. In accordance with CT protocol optimization, one or more of the following dose reduction techniques were utilized for this exam: automated exposure control, adjustment of mA and/or KV based on patient size, or use of iterative reconstructive technique. FINDINGS: Parenchyma: No evidence of an acute vascular insult or acute parenchymal hemorrhage. No midline shift. No mass-effect. Mild parenchymal volume loss with periventricular regions of low attenuation. Extraaxial Spaces: Extra-axial spaces are mildly prominent. No subdural or epidural collections identified. Ventricles: Ventricles are mildly prominent although symmetric. No hydrocephalus. Sinuses and Orbits: Imaged paranasal sinuses, orbits, and mastoids show no significant abnormality. Bones: No evidence of fracture or calvarial defect. Other: Changes are seen from left lens surgery. Vascular calcifications are noted. IMPRESSION: 1. No acute intracranial abnormality is identified. 2. Parenchymal volume loss and chronic white matter changes. RADIA
[2019-03-24 13:00] VITALS: BP 124/47
--- NOTE | 2019-03-24 13:34 | Discharge Plan ---
"Discharge Plan for SNF / DETENTION - Discharge Plan And Transition Orders Problem Reviewed?: Yes Disposition: 03 SNF DC/Xfer Condition: Poor Allergies and Adverse Reactions: Allergies Allergy/AdvReac Type Severity Reaction Status Date / Time adhesive AdvReac Mild unknown Verified 03/20/19 12:51 codeine [Codeine] AdvReac Mild Nausea Verified 03/20/19 12:51 Health Concerns: S/P left hip repair Plan of Treatment: d/c to SNF, continue PT/OT, and followup orthopedics Care Goals: healing of the injury Assessment: assessment as the above - SNF / [facility] Transition Orders Admit to (Facility): [facility] Under the care of (Name): health provider of [facility] Discharge Diagnosis: left femoral neck fracture, DM2, HTN, HLD Medicare Certification Statement: I certify that Post Hospital intermediate care is medically necessary on a continuing basis for any of the conditions for which she/he is receiving care during hospitalization. Notify PCP of admission and forward orders to primary provider for signature. Weight on admission and: Daily Call PCP immediately if weight increases by: 2 kg Other Notification Orders: Call PCP immediately if patient develops dyspnea, chest pain/tightness or edema. House Bowel Program: Yes Additional Bowel Program Orders: If no BM after 2 days, nurse may give M.O.M. 30ml PO PRN and/or ducolax Supp 1 PA and/or [place] 250mg P.O., and/or senna 1-2 tabs PO. On day 3 nurse may give repeat above order until residents constipation is resolved. Annual Influenza Vaccine (between Mar 28 and October 25): Yes Two-step PPD per [facility] [phone] or approved exception documents: Yes Treatments & Other Orders: pt may followup health provider of [facility] when she is arrival, continue PT/OT, followup orthopedics office in two weeks or as needed. Oxygen Orders: PRN Medication Orders: PLEASE REFER TO THE DISCHARGE MEDICATION LIST. Insulin Orders?: No - Medications New Prescriptions: traMADol [Ultram] 50 mg PO Q4HR PRN #15 tablet PRN Reason: Pain Alendronate [Fosamax] 70 mg PO Q7D #1 tablet Aspirin [Clifton] 325 mg PO DAILYWM #10 tablet Calcium Carbonate [Tums (Calcium Carbonate 500mg)] 500 mg PO BID #10 tablet - Diet Type: Geriatric Texture: Regular Liquids: Thin May have monthly special meal: Yes - Therapies | Activity Therapy: Evaluation | Treat if indicated: PT, OT Rehabilitation Potential: Maximize functional status Activity: Activity as Tolerated Additional Instructions: pt may followup health provider of [facility] when she is arrival, continue PT/OT, followup orthopedics office in two weeks or as needed. Insulin Orders - SNF Basal | Correction | Custom Orders: Diagnosis: Diabetes Initiate hypo and hyperglycemia protocols for BG <70 and BG >375. May check BG PRN for signs/symptoms of dysglycemia. Frequency of BG checks: [AC/Meal/HS] Basal Insulin: [] Lantus 100 units / ml inject subq as follows: [] [] Other: [] Correction Insulin: - Select the type of insulin below [Choose: Novolog/Humalog]100 units /ml insulin inject subq per orders indicate below [x] LOW DOSE [] MODERATE DOSE [] MODERATE/HIGH DOSE [] HIGH DOSE GB UNITS GB UNITS GB UNITS GB UNITS 61-140 0 UNITS 61-140 0 UNITS 61-140 0 UNITS 61-140 0 UNITS 141-175 1 UNITS 141-175 1 UNITS 141-175 2 UNITS 141-175 3 UNITS 176-225 2 UNITS 176-225 3 UNITS 176-225 4 UNITS 176-225 5 UNITS 226-275 3 UNITS 226-275 5 UNITS 226-275 6 UNITS 226-275 7 UNITS 276-325 4 UNITS 276-325 7 UNITS 276-325 8 UNITS 276-325 9 UNITS 326-375 5 UNITS 326-375 9 UNITS 326-375 10 UNITS 326-375 11 UNITS >375 CONTACT MD >375 CONTACT MD >375 CONTACT MD >375 CONTACT MD Custom Dosing: [Choose: Novolog/Humalog] 100 units/ml Insulin inject subq as follows: GB Units 61-140 [] Units 141-175 [] Units 176-225 [] Units 226-275 [] Units 276-325 []Units 326-375 [] Units >375 Contact MD"
--- NOTE | 2019-03-24 13:59 | DISCHARGE SUMMARY ---
"Discharge Summary Discharge Date: 03/24/19 Discharging Provider: BORJAS Primary Care Provider: Dr. Lyn Condition at Discharge: Poor Discharge Disposition: SNF DC/Xfer Discharge Facility Name: [facility] - DIAGNOSES Admission Diagnoses: (1) Left displaced femoral neck fracture (2) Fall (3) DM2 (diabetes mellitus, type 2) (4) HTN (hypertension) (5) HLD (hyperlipidemia) Discharge Diagnoses with Status of Each Condition: (1) Left displaced femoral neck fracture stable, d/c to SNF (2) Fall stable (3) DM2 (diabetes mellitus, type 2) stable (4) HTN (hypertension) stable (5) HLD (hyperlipidemia) stable (6) cough controlled - HPI History of Present Illness: Ms. Ahuja is a 83-year-old female with a history of diabetes and HTN, who presents ER complain of left hip pain after she had a fall. Patient report when she tried to find her dog, she ran into a glass door which caused her to fall backwards onto her left hip. She recognized the immediate pain in the hip. she could not move from the position on the ground. Her friends at the house called for EMS who transported her here. she denies other injuries. She denies weakness or numbness in the left leg. she report she walked every day about one mile. she report she moved to [facility] about two years ago from [place] after her . She denies chest pain, vision change, headache, fever, chill, shortness of breath, nausea, vomiting, abdominal pain. Pt denies cardiac history. Xray of hip reveals the findings are consistent with acute left femoral neck fracture. Pt's lab work in ER today are unremarkable. Dr. Morales was called by ER. pt is planned to have hip repair on tomorrow. pt is admitted for left hip repair. - CONSULTS | PROCEDURES Consultations: Dr. Morales Procedures: left hip repair, Bipolar replacement of left hip procedure - HOSPITAL COURSE Hospital Course: pt was admitted for evaluation and treatment of fall. pt was found to have left displaced femoral neck fracture. Dr. Morales did the surgery repair for pt. pt continue to have PT/OT, pain control in medical floor s/p surgery. pt is sensitive to Oxycodone and made she some confused, so Oxycodone was stopped. pt was recommended to d/c to SNF. pt was d/c to [facility]. 1) Left displaced femoral neck fracture stable, d/c to SNF (2) Fall stable (3) DM2 (diabetes mellitus, type 2) stable (4) HTN (hypertension) stable (5) HLD (hyperlipidemia) stable (6) cough controlled - ALLERGIES Allergies/Adverse Reactions: Allergies Allergy/AdvReac Type Severity Reaction Status Date / Time adhesive AdvReac Mild unknown Verified 03/20/19 12:51 codeine [Codeine] AdvReac Mild Nausea Verified 03/20/19 12:51 - MEDICATIONS Home Medications: Ambulatory Orders Medication Instructions Recorded Confirmed Glucosamine Sulfate Dipot Chlr 500 mg PO DAILY 01/13/13 03/22/19 [Glucosamine] Lisinopril 40 mg PO DAILY 01/13/13 03/22/19 Metformin HCl [Glucophage Xr] 750 mg PO BID 01/13/13 03/22/19 Simvastatin [Zocor] 20 mg PO QPM 01/13/13 03/22/19 Cholecalciferol (Vitamin D3) 400 unit PO DAILY 03/22/19 03/22/19 [Vitamin D3] Metoprolol Tartrate 25 mg PO DAILY 03/22/19 03/22/19 cloNIDine [Catapres] 0.1 mg PO DAILY 03/22/19 03/22/19 Alendronate [Fosamax] 70 mg PO Q7D #1 tablet 03/24/19 Aspirin [Clifton] 325 mg PO DAILYWM #10 tablet 03/24/19 Calcium Carbonate [Tums (Calcium 500 mg PO BID #10 tablet 03/24/19 Carbonate 500mg)] traMADol [Ultram] 50 mg PO Q4HR PRN #15 tablet 03/24/19 - PHYSICAL EXAM AT DISCHARGE General Appearance: positive: No acute distress, Alert. negative: Lethargic Eyes Bilateral: positive: Normal inspection, PERRL, No lid inflammation, Conjunctivae nml ENT: positive: ENT inspection nml, Pharynx nml, No signs of dehydration. negative: Purulent nasal drainage, Pharyngeal erythema, Oral lesions Neck: positive: Nml inspection, Thyroid nml, No JVD, Trachea midline. negative: Thyromegaly, Lymphadenopathy (R), Lymphadenopathy (L), Stiff neck, Swelling/bruising, Tracheal deviation Respiratory: positive: Chest non-tender, No respiratory distress, Breath sounds nml. negative: Wheezes, Rales, Rhonchi Cardiovascular: positive: Regular rate & rhythm, No murmur, No gallop. negative: Irregularly irregular, Extrasystoles, Tachycardia, Bradycardia, JVD present, Systolic murmur, Diastolic murmur Peripheral Pulses: positive: 2+ Abdomen: positive: Non-tender, No organomegaly, Nml bowel sounds, No distention. negative: Tenderness, Guarding, Rebound Back: positive: Nml inspection. negative: CVA tenderness (R), CVA tenderness (L) Skin: positive: Color nml, No rash, Warm, Dry. negative: Cyanosis, Diaphoresis, Pallor Extremities: positive: Non-tender, Full ROM, Nml appearance. negative: Calf tenderness, Joint swelling, Kendy's sign/cords Neurologic/Psychiatric: positive: Oriented x3, Sensation nml, Mood/affect nml. negative: Weakness, Sensory loss, Facial droop, Slurred/abnml speech, Depressed mood/affect - LABS Result Diagrams: 03/24/19 05:10 03/24/19 05:10 - SEPSIS Current Stage of Sepsis: Ruled out - QUALITY (Female Hip Fx Only) Was patient sent home on osteoporosis medication?: Yes - FOLLOW UP Follow Up: pt may followup health provider of [facility] when she is arrival, continue PT/OT, followup orthopedics office in two weeks or as needed. - TIME SPENT Time Spent in Discharge (Minutes): 55"
== END 2019-03-24 15:20 | DRG 470 ==
LOC: EDUNIT# → ED 11:56 → UNDOADMIN 15:29 → MS2 15:29 → UNDODISIN 03-24 15:20
PROVIDERS: ADMIT Nurse Practitioner Gerontology; ATTEND Nurse Practitioner Gerontology
PROC: 0SRS0JA Replacement of Left Hip Joint, Femoral Surface with Synthetic Substitute, Uncemented, Open Approach (ICD-10-PCS; principal; 2019-03-21 09:00)
DX: S72.002A Fracture of unspecified part of neck of left femur, initial encounter for closed fracture (principal); W18.09XA Striking against other object with subsequent fall, initial encounter; Y92.009 Unspecified place in unspecified non-institutional (private) residence as the place of occurrence of the external cause; R05 Cough; R41.0 Disorientation, unspecified; T40.2X5A Adverse effect of other opioids, initial encounter; Y92.230 Patient room in hospital as the place of occurrence of the external cause; E11.9 Type 2 diabetes mellitus without complications; I10 Essential (primary) hypertension; E78.5 Hyperlipidemia, unspecified; Z66 Do not resuscitate; Z79.899 Other long term (current) drug therapy; Z79.84 Long term (current) use of oral hypoglycemic drugs; Z87.891 Personal history of nicotine dependence
CPT/HCPCS: 36415; 70450; 71045; 71046; 73502; 80048; 80053; 80061; 81001; 82652; 83036; 83690; 83735; 84484; 85025; 85610; 86850; 86900; 86901; 87040; 93005; 93306; 96374; 96375; 97116; 97161; 97166; 97530; 99284; 99285; A9270; J0131; J1170; J7120; 83721; 87086